=== PATIENT | male | born 1950 | race Caucasian/White ===

== ENCOUNTER 2016-07-11 14:53 | Emergency (ER) | payer MEDICARE ==
[2016-07-11] MEDS ORDERED: KETOROLAC 30 MG/ML 1 ML VIAL IVP STA (15:05)
[2016-07-11] MEDS ORDERED: IPRATROPIUM-ALBUTEROL 3 ML NEB INHALATION STA (15:06)
--- NOTE | 2016-07-11 15:09 | ED ---
Chest Pain HPI - General Stated Complaint: Chest Discomfort Time Seen by Provider: 07/11/16 15:00 Source: patient, EMS, RN notes reviewed Mode of arrival: EMS - History of Present Illness Initial Comments: This is a 65-year-old male with a history of COPD who has smoked for 30 years and continues to smoke a pack a day who states he's had chest pain for about a week sharp and achy nature left sternal increase with movements and deep breathing he's had a slight cough no major phlegm production no fevers chills or sweats no peripheral edema no other complaints of any other problems today he denies any injury any heavy lifting. MD Complaint: chest pain, other - Related Data Home Medications Medication Instructions Recorded Confirmed Gabapentin 300 mg PO BID 04/06/15 07/11/16 Omeprazole 40 mg PO HS 04/06/15 07/11/16 Atorvastatin [Lipitor] 10 mg PO HS 07/31/15 07/11/16 Escitalopram [Lexapro] 5 mg PO DAILY 07/11/16 07/11/16 Previous Rx's Medication Instructions Recorded Ibuprofen [Motrin] 800 mg PO Q6HR PRN #20 tab 07/11/16 Allergies Allergy/AdvReac Type Severity Reaction Status Date / Time No Known Allergies Allergy Verified 07/11/16 15:11 Review of Systems ROS Statement: Those systems with pertinent positive or pertinent negative responses have been documented in the HPI. ROS Other: All systems not noted in ROS Statement are negative. EKG Findings - EKG Results: EKG: interpreted by ERMD, sinus rhythm (EKG shows normal sinus rhythm of 65 VT interval of 150 to QRS of 84 daily since QTC of 406/422 this is a normal- appearing EKG no acute ST-T wave changes.) Past Medical History Past Medical History: Cancer, Chest Pain / Angina, GERD/Reflux, Hyperlipidemia Additional Past Medical History / Comment(s): melanoma RT EAR, varicose veins, hiatal hernia, skin cancer on congregational area, History of Any Multi-Drug Resistant Organisms: None Reported Past Surgical History: Cholecystectomy, Hernia Repair, Orthopedic Surgery, Tonsillectomy Additional Past Surgical History / Comment(s): left shoulder surgery, Past Anesthesia/Blood Transfusion Reactions: No Reported Reaction Past Psychological History: Depression Additional Psychological History / Comment(s): hx night terrors Smoking Status: Current every day smoker Past Alcohol Use History: Occasional Additional Past Alcohol Use History / Comment(s): smoker for 50 yrs-,1/2 PPD Past Drug Use History: None Reported - Past Family History Father Family Medical History: Cancer Additional Family Medical History / Comment(s): colorectal cancer General Exam - General Exam Comments Initial Comments: This is a well-developed well-nourished awake alert oriented times female he does appear anxious General appearance: alert, anxious Head exam: Present: atraumatic, normocephalic, normal inspection Eye exam: Present: normal appearance, PERRL, EOMI. Absent: scleral icterus, conjunctival injection, periorbital swelling ENT exam: Present: normal exam, mucous membranes moist Neck exam: Present: normal inspection. Absent: tenderness, meningismus, lymphadenopathy Respiratory exam: Present: normal lung sounds bilaterally, chest wall tenderness (Reproducible tenderness palpation along the left costal chondral and chondrosternal margin). Absent: respiratory distress, wheezes, rales, rhonchi, stridor Cardiovascular Exam: Present: regular rate, normal rhythm, normal heart sounds. Absent: systolic murmur, diastolic murmur, rubs, gallop, clicks GI/Abdominal exam: Present: soft, normal bowel sounds. Absent: distended, tenderness, guarding, rebound, rigid Extremities exam: Present: normal inspection, full ROM, normal capillary refill. Absent: tenderness, pedal edema, joint swelling, calf tenderness Back exam: Present: normal inspection Neurological exam: Present: alert, oriented X3, CN II-XII intact Psychiatric exam: Present: normal affect, normal mood Skin exam: Present: warm, dry, intact, normal color. Absent: rash Course Vital Signs 07/11/16 07/11/16 07/11/16 15:00 15:05 15:23 Temperature 97.0 F L Pulse Rate 83 69 Pulse Rate [ 80 Assisted Living Assistant ] Respiratory 22 20 Rate Blood Pressure 156/88 O2 Sat by Pulse 97 Oximetry 07/11/16 07/11/16 15:36 16:33 Temperature 98.0 F Pulse Rate 63 113 H Pulse Rate [ Assisted Living Assistant ] Respiratory 18 Rate Blood Pressure 125/83 O2 Sat by Pulse 96 Oximetry Chest Pain MDM - MDM I did review the imaging and reports of which were. Be within normal limits. I did discuss the findings with the patient. He'll be discharged the presentation is consistent with chest wall pain and costochondritis he will be placed on appropriate anti-inflammatory medication follow up with his doctor and return when necessary Disposition Clinical Impression: Costalchondritis, Chest wall syndrome Disposition: HOME SELF-CARE Condition: Good Instructions: Costochondritis (ED) Prescriptions: Ibuprofen [Motrin] 800 mg PO Q6HR PRN #20 tab PRN Reason: Pain Referrals: Rebekah Maldonado DO [Primary Care Provider] - 1-2 days
[2016-07-11 15:35] LABS: Basophils # (A) 0.1 k/uL (0-0.2); Basophils % (A) 1 %; CH 32.2; CHCM 35.5; Eosinophils # (A) 0.2 k/uL (0-0.7); Eosinophils % (A) 2 %; HDW 2.57; HGB 16.3 gm/dL (13.0-17.5); Luc # (Auto) 0.11; Luc % (Auto) 1; Lymphocytes # (A) 2.9 k/uL (1.0-4.8); Lymphocytes % (A) 32 %; MCH 32.3 pg (25.0-35.0); MCHC 35.4 g/dL (31.0-37.0); MCV 91.3 fL (80.0-100.0); Mean Platelet Volume 8.4; Monocytes # (A) 0.4 k/uL (0-1.0); Monocytes % (A) 5 %; Neutrophils # (A) 5.6 k/uL (1.3-7.7); Neutrophils % (A) 60 %; RBC 5.04 m/uL (4.30-5.90); RDW 12.9 % (11.5-15.5); WBC 9.2 k/uL (3.8-10.6)
[2016-07-11 15:44] LABS: ALT 36 U/L (21-72); AST 23 U/L (17-59); Alkaline Phosphatase 64 U/L (38-126); Anion Gap 11 mmol/L; Blood Urea Nitrogen 14 mg/dL (9-20); Carbon Dioxide 22 mmol/L (22-30); Chloride 109 mmol/L (98-107); Glucose 106 mg/dL (74-99); Non-African American GFR(MDRD) >60 (>60 ml/min/1.73 sqM); Potassium 3.7 mmol/L (3.5-5.1); Sodium 142 mmol/L (137-145); Total Protein 6.9 g/dL (6.3-8.2)
--- NOTE | 2016-07-11 15:44 | XR ---
EXAMINATION TYPE: XR chest 2V DATE OF EXAM: 07/11/2016 3:41 PM COMPARISON: NONE INDICATION: Chest pain TECHNIQUE: Frontal and lateral views of the chest are obtained. FINDINGS: The heart size is normal. The pulmonary vasculature is normal. The lungs are clear. IMPRESSION: 1. No acute pulmonary process.
[2016-07-11 15:48] LABS: INR 1.1 (<1.1); Partial Thromboplastin Time 25.9 sec (22.0-30.0); Prothrombin Time 10.8 sec (9.0-12.0)
[2016-07-11 15:49] LABS: Creatine Kinase 81 U/L (55-170)
[2016-07-11 16:01] LABS: Creatine Kinase MB 0.5 ng/mL (0.0-2.4); Troponin I <0.012 ng/mL (0.000-0.034)
[2016-07-11 16:34] VITALS: BP 125/83; PULSE 113; RESP 18
[2016-07-11 16:41] VITALS: TEMP 98
== END 2016-07-11 16:45 | disposition home or self-care (01) ==
LOC: EC 14:53
DX: M94.0 Chondrocostal junction syndrome [Tietze] (principal); K21.9 Gastro-esophageal reflux disease without esophagitis; E78.5 Hyperlipidemia, unspecified; F32.9 Major depressive disorder, single episode, unspecified; F17.200 Nicotine dependence, unspecified, uncomplicated; Z79.899 Other long term (current) drug therapy; Z86.79 Personal history of other diseases of the circulatory system; Z85.828 Personal history of other malignant neoplasm of skin
CPT/HCPCS: 99285; 96374; 36415; 94640; 93005; 85379; 83880; 80053; 82550; 82553; 83735; 84484; 85025; 85610; 85730; 71020; J1885

== ENCOUNTER 2018-01-08 05:54 | Emergency (ER) | payer MEDICARE ==
[2018-01-08 06:06] VITALS: RESP 16
--- NOTE | 2018-01-08 06:36 | ED ---
Abdominal Pain HPI - General Chief Complaint: Abdominal Pain Stated Complaint: male Time Seen by Provider: 01/08/18 06:17 Source: patient Mode of arrival: ambulatory Limitations: no limitations - History of Present Illness Initial Comments: This patient is a 67-year-old man who presents to be evaluated for abdominal pain that he believes is related to constipation. Patient states that for the past 6 weeks he has had these symptoms. He indicates abdominal pains that seem to migrate around his abdomen but are generally worse in the low abdomen, and he also feels pain toward the perianal area. The patient states that his bowel movements have been decreasing. He relates this to the fact that he decrease the amount of bicycling that he was doing approximately 4-6 weeks ago. MD Complaint: abdominal pain Onset/Timin -: week(s) Location: diffuse Radiation: none Severity: moderate Quality: cramping, fullness Consistency: intermittent Improves With: bowel movement Worsens With: nothing Associated Symptoms: denies other symptoms - Related Data Home Medications Medication Instructions Recorded Confirmed Gabapentin 600 mg PO HS 04/06/15 10/27/17 Omeprazole 40 mg PO HS 04/06/15 10/27/17 Atorvastatin [Lipitor] 10 mg PO HS 07/31/15 10/27/17 Escitalopram [Lexapro] 5 mg PO HS 07/11/16 10/27/17 Previous Rx's Medication Instructions Recorded Ibuprofen [Motrin] 800 mg PO Q6HR PRN #20 tab 07/11/16 Lactulose 10 gm PO DAILY #500 ml 01/08/18 Allergies Allergy/AdvReac Type Severity Reaction Status Date / Time No Known Allergies Allergy Verified 10/27/17 07:29 Review of Systems ROS Statement: Those systems with pertinent positive or pertinent negative responses have been documented in the HPI. ROS Other: All systems not noted in ROS Statement are negative. Constitutional: Denies: fever, chills Respiratory: Denies: cough, dyspnea Cardiovascular: Denies: chest pain, palpitations Gastrointestinal: Reports: as per HPI, abdominal pain, constipation. Denies: nausea, vomiting, diarrhea, melena, hematochezia Genitourinary: Denies: dysuria, hematuria, testicular pain, testicular mass Musculoskeletal: Denies: back pain Skin: Denies: rash Neurological: Denies: headache Past Medical History Past Medical History: Cancer, Chest Pain / Angina, GERD/Reflux, Hyperlipidemia Additional Past Medical History / Comment(s): melanoma RT EAR, varicose veins, hiatal hernia, skin cancer on judaism area, colon polyps History of Any Multi-Drug Resistant Organisms: None Reported Past Surgical History: Cholecystectomy, Hernia Repair, Orthopedic Surgery, Tonsillectomy Additional Past Surgical History / Comment(s): left shoulder surgery, Past Anesthesia/Blood Transfusion Reactions: No Reported Reaction Past Psychological History: Depression Smoking Status: Current every day smoker Past Alcohol Use History: Occasional Past Drug Use History: None Reported - Past Family History Father Family Medical History: Cancer Additional Family Medical History / Comment(s): colorectal cancer General Exam Limitations: no limitations General appearance: alert, in no apparent distress Head exam: Present: atraumatic, normocephalic Eye exam: Present: normal appearance. Absent: scleral icterus, conjunctival injection ENT exam: Present: normal oropharynx Respiratory exam: Present: normal lung sounds bilaterally. Absent: respiratory distress, wheezes, rales, rhonchi, stridor Cardiovascular Exam: Present: regular rate, normal rhythm, normal heart sounds. Absent: systolic murmur, diastolic murmur, rubs, gallop GI/Abdominal exam: Present: soft. Absent: distended, tenderness, guarding, rebound, rigid, mass Extremities exam: Present: normal inspection, normal capillary refill. Absent: pedal edema Back exam: Present: normal inspection. Absent: CVA tenderness (R), CVA tenderness (L) Neurological exam: Present: alert Skin exam: Present: warm, dry, intact, normal color. Absent: rash Course Vital Signs 01/08/18 01/08/18 06:02 06:40 Temperature 97.5 F L 97.8 F Pulse Rate 57 L 51 L Respiratory 16 16 Rate Blood Pressure 129/82 170/94 O2 Sat by Pulse 98 95 Oximetry Medical Decision Making - Lab Data Result diagrams: 01/08/18 06:28 01/08/18 06:28 Lab Results 01/08/18 01/08/18 01/08/18 Range/Units 06:28 06:28 06:59 WBC 9.2 (3.8-10.6) k/uL RBC 5.35 (4.30-5.90) m/uL Hgb 16.5 (13.0-17.5) gm/dL Hct 51.3 (39.0-53.0) % MCV 95.9 (80.0-100.0) fL MCH 30.9 (25.0-35.0) pg MCHC 32.2 (31.0-37.0) g/dL RDW 13.7 (11.5-15.5) % Plt Count 211 (150-450) k/uL Neutrophils % 56 % Lymphocytes % 33 % Monocytes % 4 % Eosinophils % 4 % Basophils % 1 % Neutrophils # 5.1 (1.3-7.7) k/uL Lymphocytes # 3.1 (1.0-4.8) k/uL Monocytes # 0.4 (0-1.0) k/uL Eosinophils # 0.4 (0-0.7) k/uL Basophils # 0.1 (0-0.2) k/uL Sodium 142 (137-145) mmol/L Potassium 4.2 (3.5-5.1) mmol/L Chloride 109 H (98-107) mmol/L Carbon Dioxide 26 (22-30) mmol/L Anion Gap 7 mmol/L BUN 12 (9-20) mg/dL Creatinine 0.84 (0.66-1.25) mg/dL Est GFR (CKD-EPI)AfAm >90 (>60 ml/min/1.73 sqM) Est GFR (CKD-EPI)NonAf >90 (>60 ml/min/1.73 sqM) Glucose 88 (74-99) mg/dL Calcium 10.3 H (8.4-10.2) mg/dL Total Bilirubin 0.7 (0.2-1.3) mg/dL AST 23 (17-59) U/L ALT 35 (21-72) U/L Alkaline Phosphatase 63 (38-126) U/L Total Protein 7.0 (6.3-8.2) g/dL Albumin 4.4 (3.5-5.0) g/dL Amylase 44 (30-110) U/L Lipase 61 (23-300) U/L Stool Occult Blood Negative (Negative) Disposition Clinical Impression: Constipation Disposition: HOME SELF-CARE Condition: Good Instructions: Constipation (ED) Prescriptions: Lactulose 10 gm PO DAILY #500 ml Is patient prescribed a controlled substance at d/c from ED?: No Referrals: Rebekah Maldonado DO [Primary Care Provider] - 1-2 days Darin Spain MD [STAFF PHYSICIAN] - 1-2 days
[2018-01-08 06:44] LABS: Basophils # (A) 0.1 k/uL (0-0.2); Basophils % (A) 1 %; Eosinophils # (A) 0.4 k/uL (0-0.7); Eosinophils % (A) 4 %; HCT 51.3 % (39.0-53.0); HGB 16.5 gm/dL (13.0-17.5); Lymphocytes # (A) 3.1 k/uL (1.0-4.8); Lymphocytes % (A) 33 %; MCH 30.9 pg (25.0-35.0); MCHC 32.2 g/dL (31.0-37.0); MCV 95.9 fL (80.0-100.0); Mean Platelet Volume 7.8; Monocytes # (A) 0.4 k/uL (0-1.0); Monocytes % (A) 4 %; Neutrophils # (A) 5.1 k/uL (1.3-7.7); Neutrophils % (A) 56 %; Platelet Count 211 k/uL (150-450); RBC 5.35 m/uL (4.30-5.90); RDW 13.7 % (11.5-15.5); WBC 9.2 k/uL (3.8-10.6)
[2018-01-08 07:01] LABS: ALT 35 U/L (21-72); AST 23 U/L (17-59); Albumin 4.4 g/dL (3.5-5.0); Alkaline Phosphatase 63 U/L (38-126); Amylase 44 U/L (30-110); Anion Gap 7 mmol/L; Blood Urea Nitrogen 12 mg/dL (9-20); Calcium 10.3 mg/dL (8.4-10.2); Carbon Dioxide 26 mmol/L (22-30); Chloride 109 mmol/L (98-107); Glucose 88 mg/dL (74-99); Lipase 61 U/L (23-300); Potassium 4.2 mmol/L (3.5-5.1); Sodium 142 mmol/L (137-145); Total Bilirubin 0.7 mg/dL (0.2-1.3)
--- NOTE | 2018-01-08 07:13 | XR ---
EXAMINATION TYPE: XR KUB DATE OF EXAM: 01/08/2018 COMPARISON: NONE HISTORY: Pain TECHNIQUE: Single supine KUB image of the abdomen is obtained FINDINGS: Small bowel demonstrates no evidence for dilatation or air fluid levels. Gas and fecal material is seen in non-distended colon. No convincing evidence for pneumoperitoneum. No unusual calcifications. The lung bases are clear. The osseous structures are intact. IMPRESSION: 1. Overall nonobstructive bowel gas pattern.
[2018-01-08] MEDS ORDERED: MAGNESIUM CITRATE 296 ML BOTTLE PO ONE (07:34)
[2018-01-08 07:52] LABS: Appearance,Urine Clear (Clear); Bilirubin,Urine Negative (Negative); Blood,Urine Negative (Negative); Color,Urine Yellow; Glucose,Urine (UA) Negative (Negative); Ketones,Urine Negative (Negative); Leukocyte Esterase,Urine Negative (Negative); Nitrite,Urine Negative (Negative); Protein,Urine Negative (Negative); Specific Gravity,Urine 1.017 (1.001-1.035); Urobilinogen,Urine <2.0 mg/dL (<2.0)
[2018-01-08 08:07] VITALS: BP 158/94; PULSE 68; TEMP 97.9
== END 2018-01-08 08:06 | disposition home or self-care (01) ==
LOC: EC 05:54
DX: K59.00 Constipation, unspecified (principal); R10.84 Generalized abdominal pain; K21.9 Gastro-esophageal reflux disease without esophagitis; E78.5 Hyperlipidemia, unspecified; F32.9 Major depressive disorder, single episode, unspecified; Z85.828 Personal history of other malignant neoplasm of skin; F17.200 Nicotine dependence, unspecified, uncomplicated; Z79.899 Other long term (current) drug therapy; Z90.49 Acquired absence of other specified parts of digestive tract
CPT/HCPCS: 36415; 74018; 80053; 81003; 82150; 82272; 83690; 85025; 99284

== ENCOUNTER 2018-04-21 15:14 | Emergency (ER) | payer MEDICARE ==
[2018-04-21 15:26] VITALS: RESP 18
[2018-04-21] MEDS ORDERED: MECLIZINE 12.5 MG TAB PO STA (16:03)
[2018-04-21] MEDS ORDERED: SODIUM CHLORIDE 0.9% 1,000 ML IV STA (16:03)
--- NOTE | 2018-04-21 16:58 | XR ---
EXAMINATION: XR chest 2V DATE AND TIME: 04/21/2018 4:42 PM CLINICAL INDICATION: PHH; dizziness TECHNIQUE: Departmental protocol COMPARISON: 07/11/2016 FINDINGS: The lungs are clear. The pleural spaces are negative. The cardiac silhouette is not enlarged. The skeletal structures and soft tissues are negative for acute findings. IMPRESSION: NO ACUTE PROCESS.
[2018-04-21 17:05] LABS: Appearance,Urine Clear (Clear); Basophils # (A) 0.1 k/uL (0-0.2); Basophils % (A) 1 %; Bilirubin,Urine Negative (Negative); Blood,Urine Negative (Negative); Color,Urine Yellow; Eosinophils # (A) 0.4 k/uL (0-0.7); Eosinophils % (A) 4 %; Glucose,Urine (UA) Negative (Negative); HCT 50.1 % (39.0-53.0); HGB 15.9 gm/dL (13.0-17.5); Ketones,Urine Negative (Negative); Leukocyte Esterase,Urine Negative (Negative); Lymphocytes # (A) 4.2 k/uL (1.0-4.8); Lymphocytes % (A) 42 %; MCH 30.2 pg (25.0-35.0); MCHC 31.7 g/dL (31.0-37.0); MCV 95.4 fL (80.0-100.0); Mean Platelet Volume 8.2; Monocytes # (A) 0.5 k/uL (0-1.0); Monocytes % (A) 5 %; Neutrophils # (A) 4.6 k/uL (1.3-7.7); Neutrophils % (A) 47 %; Nitrite,Urine Negative (Negative); PH, Urine 6.5 (5.0-8.0); Platelet Count 195 k/uL (150-450); Protein,Urine Negative (Negative); RBC 5.26 m/uL (4.30-5.90); RDW 13.5 % (11.5-15.5); Specific Gravity,Urine 1.017 (1.001-1.035); Urobilinogen,Urine <2.0 mg/dL (<2.0); WBC 9.9 k/uL (3.8-10.6)
[2018-04-21 17:16] LABS: INR 0.9 (<1.2); Prothrombin Time 10.2 sec (9.0-12.0)
[2018-04-21 17:20] LABS: ALT 37 U/L (21-72); AST 19 U/L (17-59); Albumin 4.2 g/dL (3.5-5.0); Alkaline Phosphatase 70 U/L (38-126); Anion Gap 6 mmol/L; Blood Urea Nitrogen 11 mg/dL (9-20); Calcium 9.7 mg/dL (8.4-10.2); Carbon Dioxide 27 mmol/L (22-30); Chloride 110 mmol/L (98-107); Glucose 76 mg/dL (74-99); Sodium 143 mmol/L (137-145); Total Bilirubin 0.4 mg/dL (0.2-1.3); Total Protein 6.5 g/dL (6.3-8.2)
--- NOTE | 2018-04-21 17:26 | ED ---
Dizziness HPI - General Chief Complaint: Dizziness Stated Complaint: Dizzy, unbalanced Time Seen by Provider: 04/21/18 15:35 Source: patient, RN notes reviewed, old records reviewed Mode of arrival: ambulatory Limitations: no limitations - History of Present Illness Initial Comments: Patient's this 7-year-old male presents today with complaints of dizziness. Patient states that he has had symptoms of dizziness intermittently for the past few months. He reports feeling the room is spinning. He does complain of some sinus condition. He's been evaluated multiple times in past with dizziness. Denies any chest patient's breath nausea or vomiting. - Related Data Home Medications Medication Instructions Recorded Confirmed Gabapentin 600 mg PO HS 04/06/15 04/21/18 Omeprazole 40 mg PO HS 04/06/15 04/21/18 Atorvastatin [Lipitor] 10 mg PO HS 07/31/15 04/21/18 ALPRAZolam [Xanax] 0.5 mg PO DAILY PRN 04/21/18 04/21/18 Previous Rx's Medication Instructions Recorded Meclizine [Antivert] 25 mg PO TID #20 tab 04/21/18 Allergies Allergy/AdvReac Type Severity Reaction Status Date / Time No Known Allergies Allergy Verified 04/21/18 17:17 Review of Systems ROS Statement: Those systems with pertinent positive or pertinent negative responses have been documented in the HPI. ROS Other: All systems not noted in ROS Statement are negative. Past Medical History Past Medical History: Cancer, Chest Pain / Angina, GERD/Reflux, Hyperlipidemia Additional Past Medical History / Comment(s): melanoma RT EAR, varicose veins, hiatal hernia, skin cancer on pentecostal area, colon polyps History of Any Multi-Drug Resistant Organisms: None Reported Past Surgical History: Cholecystectomy, Hernia Repair, Orthopedic Surgery, Tonsillectomy Additional Past Surgical History / Comment(s): left shoulder surgery, Past Anesthesia/Blood Transfusion Reactions: No Reported Reaction Past Psychological History: Depression Smoking Status: Current every day smoker Past Alcohol Use History: Occasional Past Drug Use History: None Reported - Past Family History Father Family Medical History: Cancer Additional Family Medical History / Comment(s): colorectal cancer General Exam - General Exam Comments Initial Comments: 67-year-old male. Alert and oriented 3. No significant distress General: Well appearing, well nourished, in no distress. Oriented x 3, normal mood and affect . Ambulating without difficulty. Skin: Good turgor, no rash, unusual bruising or prominent lesions Hair: Normal texture and distribution. HEENT: Head: Normocephalic, atraumatic, no visible or palpable masses, depressions, or scaring. Eyes: Visual acuity intact, conjunctiva clear, sclera non-icteric, EOM intact, PERRL. Ears: EACs clear, TMs translucent & cone of light visualized. hearing intact. Nose: No external lesions, mucosa non-inflamed, septum and turbinates normal Mouth: Mucous membranes moist, no mucosal lesions. Teeth/Gums: No obvious caries or periodontal disease. No gingival inflammation or significant resorption. Pharynx: Mucosa non-inflamed, no tonsillar hypertrophy or exudate Neck: Supple, without lesions, bruits, or adenopathy, thyroid non-enlarged and non-tender Heart: No cardiomegaly or thrills; regular rate and rhythm, no murmur or gallop Lungs: Clear to auscultation and percussion Abdomen: Bowel sounds normal, no tenderness, organomegaly, masses, or hernia Back: Spine normal without deformity or tenderness, no CVA tenderness Rectal: Normal sphincter tone, no hemorrhoids or masses palpable Extremities: No amputations or deformities, cyanosis, edema or varicosities, peripheral pulses intact Musculoskeletal: Normal gait and station. No misalignment, asymmetry, crepitation, defects, tenderness, masses, effusions, decreased range of motion, instability, atrophy or abnormal strength or tone in the head, neck, spine, ribs , pelvis or extremities. Neurologic: CN 2-12 normal. Sensation to pain, touch, and proprioception normal. DTRs normal in upper and lower extremities. No pathologic reflexes. Psychiatric: Oriented X3, intact recent and remote memory, judgment and insight , normal mood and affect. Limitations: no limitations General appearance: alert, in no apparent distress Head exam: Present: atraumatic, normocephalic, normal inspection Course Vital Signs 04/21/18 04/21/18 04/21/18 15:24 17:00 18:00 Temperature 98.4 F Pulse Rate 57 L 46 L 45 L Respiratory 18 18 18 Rate Blood Pressure 166/89 154/118 191/100 O2 Sat by Pulse 99 97 96 Oximetry 04/21/18 18:51 Temperature 97.4 F L Pulse Rate 59 L Respiratory 18 Rate Blood Pressure 157/100 O2 Sat by Pulse 98 Oximetry EKG Findings - EKG Comments: EKG Findings:: EKG shows sinus precordial sinus arrhythmia, left axis deviation. Abnormal EKG. Ventricular rate 57 bpm. Verbal is 154 ms. QRS duration 86 most seconds. QT QTc is 416/404 ms. Medical Decision Making - Medical Decision Making 67-year-old male present in today with complaints of dizziness. He feels like the room is spinning. He's been having this intermittent room spinning for the past few months. Patient is given IV fluids and lab work was obtained. EKG was negative for any acute changes. Troponins negative. Chest x-rays negative for any acute response. has reported feeling better after dose of meclizine. I discussed that Patient symptoms like this in the vertigo. He did have some lateral left-sided nystagmus. Patient denies any headache or pains. Discusses sent discharge and Patient with prescription for meclizine. Discussed close follow-up with PCP. All questions were answered. Patient was anxious for discharge. - Lab Data Result diagrams: 04/21/18 16:20 04/21/18 16:20 Lab Results 04/21/18 04/21/18 04/21/18 Range/Units 16:20 16:20 16:20 WBC 9.9 (3.8-10.6) k/uL RBC 5.26 (4.30-5.90) m/uL Hgb 15.9 (13.0-17.5) gm/dL Hct 50.1 (39.0-53.0) % MCV 95.4 (80.0-100.0) fL MCH 30.2 (25.0-35.0) pg MCHC 31.7 (31.0-37.0) g/dL RDW 13.5 (11.5-15.5) % Plt Count 195 (150-450) k/uL Neutrophils % 47 % Lymphocytes % 42 % Monocytes % 5 % Eosinophils % 4 % Basophils % 1 % Neutrophils # 4.6 (1.3-7.7) k/uL Lymphocytes # 4.2 (1.0-4.8) k/uL Monocytes # 0.5 (0-1.0) k/uL Eosinophils # 0.4 (0-0.7) k/uL Basophils # 0.1 (0-0.2) k/uL PT 10.2 (9.0-12.0) sec INR 0.9 (<1.2) Sodium 143 (137-145) mmol/L Potassium 4.0 (3.5-5.1) mmol/L Chloride 110 H (98-107) mmol/L Carbon Dioxide 27 (22-30) mmol/L Anion Gap 6 mmol/L BUN 11 (9-20) mg/dL Creatinine 0.89 (0.66-1.25) mg/dL Est GFR (CKD-EPI)AfAm >90 (>60 ml/min/1.73 sqM) Est GFR (CKD-EPI)NonAf >90 (>60 ml/min/1.73 sqM) Glucose 76 (74-99) mg/dL Calcium 9.7 (8.4-10.2) mg/dL Total Bilirubin 0.4 (0.2-1.3) mg/dL AST 19 (17-59) U/L ALT 37 (21-72) U/L Alkaline Phosphatase 70 (38-126) U/L Troponin I (0.000-0.034) ng/mL Total Protein 6.5 (6.3-8.2) g/dL Albumin 4.2 (3.5-5.0) g/dL Urine Color Urine Appearance (Clear) Urine pH (5.0-8.0) Ur Specific Harper (1.001-1.035) Urine Protein (Negative) Urine Glucose (UA) (Negative) Urine Ketones (Negative) Urine Blood (Negative) Urine Nitrite (Negative) Urine Bilirubin (Negative) Urine Urobilinogen (<2.0) mg/dL Ur Leukocyte Esterase (Negative) 04/21/18 04/21/18 Range/Units 16:20 16:20 WBC (3.8-10.6) k/uL RBC (4.30-5.90) m/uL Hgb (13.0-17.5) gm/dL Hct (39.0-53.0) % MCV (80.0-100.0) fL MCH (25.0-35.0) pg MCHC (31.0-37.0) g/dL RDW (11.5-15.5) % Plt Count (150-450) k/uL Neutrophils % % Lymphocytes % % Monocytes % % Eosinophils % % Basophils % % Neutrophils # (1.3-7.7) k/uL Lymphocytes # (1.0-4.8) k/uL Monocytes # (0-1.0) k/uL Eosinophils # (0-0.7) k/uL Basophils # (0-0.2) k/uL PT (9.0-12.0) sec INR (<1.2) Sodium (137-145) mmol/L Potassium (3.5-5.1) mmol/L Chloride (98-107) mmol/L Carbon Dioxide (22-30) mmol/L Anion Gap mmol/L BUN (9-20) mg/dL Creatinine (0.66-1.25) mg/dL Est GFR (CKD-EPI)AfAm (>60 ml/min/1.73 sqM) Est GFR (CKD-EPI)NonAf (>60 ml/min/1.73 sqM) Glucose (74-99) mg/dL Calcium (8.4-10.2) mg/dL Total Bilirubin (0.2-1.3) mg/dL AST (17-59) U/L ALT (21-72) U/L Alkaline Phosphatase (38-126) U/L Troponin I <0.012 (0.000-0.034) ng/mL Total Protein (6.3-8.2) g/dL Albumin (3.5-5.0) g/dL Urine Color Yellow Urine Appearance Clear (Clear) Urine pH 6.5 (5.0-8.0) Ur Specific Harper 1.017 (1.001-1.035) Urine Protein Negative (Negative) Urine Glucose (UA) Negative (Negative) Urine Ketones Negative (Negative) Urine Blood Negative (Negative) Urine Nitrite Negative (Negative) Urine Bilirubin Negative (Negative) Urine Urobilinogen <2.0 (<2.0) mg/dL Ur Leukocyte Esterase Negative (Negative) - Radiology Data Radiology results: report reviewed Chest x-rays negative for any acute process. Disposition Clinical Impression: Vertigo Disposition: HOME SELF-CARE Condition: Good Instructions (If sedation given, give patient instructions): Dizziness (ED) Additional Instructions: Patient is to rest, have a low-salt diet. Follow-up with PCP. Return to the emergency department if any alarming signs or symptoms occur. Prescriptions: Meclizine [Antivert] 25 mg PO TID #20 tab Is patient prescribed a controlled substance at d/c from ED?: No Referrals: Rebekah Maldonado DO [Primary Care Provider] - 1-2 days Time of Disposition: 18:36
[2018-04-21 18:53] VITALS: BP 157/100; PULSE 59; TEMP 97.4
== END 2018-04-21 18:50 | disposition home or self-care (01) ==
LOC: EC 15:14
DX: R42 Dizziness and giddiness (principal); K21.9 Gastro-esophageal reflux disease without esophagitis; E78.5 Hyperlipidemia, unspecified; Z85.820 Personal history of malignant melanoma of skin; F17.200 Nicotine dependence, unspecified, uncomplicated; Z79.899 Other long term (current) drug therapy
CPT/HCPCS: 36415; 71046; 80053; 81003; 84484; 85025; 85610; 93005; 96360; 99284

== ENCOUNTER 2018-04-22 11:38 | Observation (INO) | payer MEDICARE ==
[2018-04-22] MEDS ORDERED: NITROGLYCERIN OINT 1 INCH/GM PACKET TOPICAL STA (11:55)
[2018-04-22] MEDS ORDERED: ASPIRIN 81 MG PO STA (11:55)
--- NOTE | 2018-04-22 11:58 | ED ---
General Adult HPI - General Chief complaint: Chest Pain Stated complaint: Chest discomfort Time Seen by Provider: 04/22/18 11:43 Source: patient, RN notes reviewed Mode of arrival: EMS Limitations: no limitations - History of Present Illness Initial comments: Patient is a pleasant 67-year-old male presenting to the emergency Department with chest discomfort. Onset of symptoms was this morning prior to arrival following taking a half mile walk. Discomfort felt like pressure or discomfort was moderate rated 5 or 6/10. Discomfort is now near resolved. There was some mild associated dyspnea and minimal nausea. Dose of both resolved. No associated diaphoresis. No history of similar symptoms previously. Patient has had some generalized weakness and fatigue over the past couple months intermittently. - Related Data Home Medications Medication Instructions Recorded Confirmed Gabapentin 600 mg PO HS 04/06/15 04/22/18 Omeprazole 40 mg PO HS 04/06/15 04/22/18 Atorvastatin [Lipitor] 10 mg PO HS 07/31/15 04/22/18 ALPRAZolam [Xanax] 0.5 mg PO DAILY PRN 04/21/18 04/22/18 Previous Rx's Medication Instructions Recorded Meclizine [Antivert] 25 mg PO TID #20 tab 04/21/18 Allergies Allergy/AdvReac Type Severity Reaction Status Date / Time No Known Allergies Allergy Verified 04/22/18 12:04 Review of Systems ROS Statement: Those systems with pertinent positive or pertinent negative responses have been documented in the HPI. ROS Other: All systems not noted in ROS Statement are negative. Constitutional: Denies: fever Eyes: Denies: eye pain ENT: Denies: ear pain Respiratory: Reports: as per HPI. Denies: cough Cardiovascular: Reports: chest pain Endocrine: Reports: fatigue Gastrointestinal: Denies: abdominal pain Genitourinary: Denies: dysuria Musculoskeletal: Denies: back pain Skin: Denies: rash Neurological: Denies: weakness Past Medical History Past Medical History: Cancer, Chest Pain / Angina, GERD/Reflux, Hyperlipidemia Additional Past Medical History / Comment(s): melanoma RT EAR, varicose veins, hiatal hernia, skin cancer on quaker area, colon polyps History of Any Multi-Drug Resistant Organisms: None Reported Past Surgical History: Cholecystectomy, Hernia Repair, Orthopedic Surgery, Tonsillectomy Additional Past Surgical History / Comment(s): left shoulder surgery, Past Anesthesia/Blood Transfusion Reactions: No Reported Reaction Past Psychological History: Anxiety, Depression Smoking Status: Current every day smoker Past Alcohol Use History: Occasional Past Drug Use History: None Reported - Past Family History Father Family Medical History: Cancer Additional Family Medical History / Comment(s): colorectal cancer General Exam Limitations: no limitations General appearance: alert, in no apparent distress Head exam: Present: atraumatic Eye exam: Present: normal appearance, PERRL ENT exam: Present: normal oropharynx Neck exam: Present: normal inspection Respiratory exam: Present: normal lung sounds bilaterally Cardiovascular Exam: Present: regular rate, normal rhythm Expanded Peripheral pulses: 2+: Radial (R), Radial (L), Posterior Tibialis (R), Posterior Tibialis (L) GI/Abdominal exam: Present: soft. Absent: tenderness Extremities exam: Present: normal inspection. Absent: pedal edema, calf tenderness Neurological exam: Present: alert, CN II-XII intact. Absent: motor sensory deficit Psychiatric exam: Present: normal affect, normal mood Skin exam: Present: normal color Course Vital Signs 04/22/18 04/22/18 04/22/18 11:41 11:43 12:00 Temperature 97.7 F Pulse Rate 93 91 48 L Respiratory 18 29 H Rate Blood Pressure 105/87 105/87 95/74 O2 Sat by Pulse 96 96 99 Oximetry 04/22/18 04/22/18 04/22/18 12:30 13:00 13:30 Temperature Pulse Rate 56 L 46 L 44 L Respiratory Rate Blood Pressure 108/79 109/73 134/78 O2 Sat by Pulse 97 97 96 Oximetry 04/22/18 14:00 Temperature Pulse Rate 43 L Respiratory Rate Blood Pressure 115/81 O2 Sat by Pulse 98 Oximetry EKG Findings - EKG Comments: EKG Findings:: Normal sinus rhythm 88. CA 140. QRS 84. QT 376. QTc 454. Left axis. Normal QRS. No acute ST change. Medical Decision Making - Medical Decision Making Patient reevaluated and resting comfortably in bed. Patient updated on results and plan. Case was discussed in detail with Dr. Croft, covering for Dr. Collado , who will admit. - Lab Data Result diagrams: 04/22/18 11:45 04/22/18 11:45 Lab Results 04/22/18 04/22/18 04/22/18 Range/Units 11:45 11:45 11:45 WBC 9.8 (3.8-10.6) k/uL RBC 5.09 (4.30-5.90) m/uL Hgb 16.2 (13.0-17.5) gm/dL Hct 48.5 (39.0-53.0) % MCV 95.2 (80.0-100.0) fL MCH 31.9 (25.0-35.0) pg MCHC 33.5 (31.0-37.0) g/dL RDW 13.5 (11.5-15.5) % Plt Count 177 (150-450) k/uL Neutrophils % 58 % Lymphocytes % 33 % Monocytes % 4 % Eosinophils % 3 % Basophils % 1 % Neutrophils # 5.7 (1.3-7.7) k/uL Lymphocytes # 3.2 (1.0-4.8) k/uL Monocytes # 0.4 (0-1.0) k/uL Eosinophils # 0.3 (0-0.7) k/uL Basophils # 0.1 (0-0.2) k/uL PT 10.3 (9.0-12.0) sec INR 1.0 (<1.2) APTT 25.1 (22.0-30.0) sec D-Dimer 0.35 (<0.60) mg/L FEU Sodium 143 (137-145) mmol/L Potassium 4.2 (3.5-5.1) mmol/L Chloride 111 H (98-107) mmol/L Carbon Dioxide 25 (22-30) mmol/L Anion Gap 7 mmol/L BUN 8 L (9-20) mg/dL Creatinine 0.81 (0.66-1.25) mg/dL Est GFR (CKD-EPI)AfAm >90 (>60 ml/min/1.73 sqM) Est GFR (CKD-EPI)NonAf >90 (>60 ml/min/1.73 sqM) Glucose 83 (74-99) mg/dL Calcium 9.6 (8.4-10.2) mg/dL Magnesium 1.9 (1.6-2.3) mg/dL Total Bilirubin 0.7 (0.2-1.3) mg/dL AST 19 (17-59) U/L ALT 38 (21-72) U/L Alkaline Phosphatase 68 (38-126) U/L Troponin I (0.000-0.034) ng/mL NT-Pro-B Natriuret Pep pg/mL Total Protein 6.4 (6.3-8.2) g/dL Albumin 4.1 (3.5-5.0) g/dL 04/22/18 04/22/18 Range/Units 11:45 11:45 WBC (3.8-10.6) k/uL RBC (4.30-5.90) m/uL Hgb (13.0-17.5) gm/dL Hct (39.0-53.0) % MCV (80.0-100.0) fL MCH (25.0-35.0) pg MCHC (31.0-37.0) g/dL RDW (11.5-15.5) % Plt Count (150-450) k/uL Neutrophils % % Lymphocytes % % Monocytes % % Eosinophils % % Basophils % % Neutrophils # (1.3-7.7) k/uL Lymphocytes # (1.0-4.8) k/uL Monocytes # (0-1.0) k/uL Eosinophils # (0-0.7) k/uL Basophils # (0-0.2) k/uL PT (9.0-12.0) sec INR (<1.2) APTT (22.0-30.0) sec D-Dimer (<0.60) mg/L FEU Sodium (137-145) mmol/L Potassium (3.5-5.1) mmol/L Chloride (98-107) mmol/L Carbon Dioxide (22-30) mmol/L Anion Gap mmol/L BUN (9-20) mg/dL Creatinine (0.66-1.25) mg/dL Est GFR (CKD-EPI)AfAm (>60 ml/min/1.73 sqM) Est GFR (CKD-EPI)NonAf (>60 ml/min/1.73 sqM) Glucose (74-99) mg/dL Calcium (8.4-10.2) mg/dL Magnesium (1.6-2.3) mg/dL Total Bilirubin (0.2-1.3) mg/dL AST (17-59) U/L ALT (21-72) U/L Alkaline Phosphatase (38-126) U/L Troponin I <0.012 (0.000-0.034) ng/mL NT-Pro-B Natriuret Pep 75 pg/mL Total Protein (6.3-8.2) g/dL Albumin (3.5-5.0) g/dL - Radiology Data Radiology results: report reviewed (Unable to do images at this time secondary to PACs system being down. Report as cardiomegaly, COPD, atelectasis) Disposition Clinical Impression: Chest pain Disposition: ADMITTED IP TO THIS HOSP Is patient prescribed a controlled substance at d/c from ED?: No Referrals: Rebekah Maldonado DO [Primary Care Provider] - 1-2 days Decision Time: 14:36
[2018-04-22 12:23] LABS: Basophils # (A) 0.1 k/uL (0-0.2); Basophils % (A) 1 %; Eosinophils # (A) 0.3 k/uL (0-0.7); Eosinophils % (A) 3 %; HCT 48.5 % (39.0-53.0); HGB 16.2 gm/dL (13.0-17.5); Lymphocytes # (A) 3.2 k/uL (1.0-4.8); Lymphocytes % (A) 33 %; MCH 31.9 pg (25.0-35.0); MCHC 33.5 g/dL (31.0-37.0); MCV 95.2 fL (80.0-100.0); Mean Platelet Volume 8.7; Monocytes # (A) 0.4 k/uL (0-1.0); Monocytes % (A) 4 %; Neutrophils # (A) 5.7 k/uL (1.3-7.7); Neutrophils % (A) 58 %; Platelet Count 177 k/uL (150-450); RBC 5.09 m/uL (4.30-5.90); RDW 13.5 % (11.5-15.5); WBC 9.8 k/uL (3.8-10.6)
[2018-04-22 12:24] LABS: ALT 38 U/L (21-72); AST 19 U/L (17-59); Albumin 4.1 g/dL (3.5-5.0); Alkaline Phosphatase 68 U/L (38-126); Anion Gap 7 mmol/L; Blood Urea Nitrogen 8 mg/dL (9-20); Calcium 9.6 mg/dL (8.4-10.2); Carbon Dioxide 25 mmol/L (22-30); Chloride 111 mmol/L (98-107); Glucose 83 mg/dL (74-99); Magnesium 1.9 mg/dL (1.6-2.3); Potassium 4.2 mmol/L (3.5-5.1); Sodium 143 mmol/L (137-145); Total Bilirubin 0.7 mg/dL (0.2-1.3); Total Protein 6.4 g/dL (6.3-8.2)
[2018-04-22 12:32] LABS: D-Dimer 0.35 mg/L FEU (<0.60); Partial Thromboplastin Time 25.1 sec (22.0-30.0); Prothrombin Time 10.3 sec (9.0-12.0)
--- NOTE | 2018-04-22 13:46 | XR ---
EXAMINATION TYPE: XR chest 2V DATE OF EXAM: 04/22/2018 COMPARISON: CXR from yesterday. HISTORY: Near syncope per technologist. Chest pain per order. TECHNIQUE: Frontal and lateral views of the chest are obtained. FINDINGS: There is chronic parenchymal change with new left basilar linear atelectasis. Right lung i s clear. No pleural effusion or pneumothorax is evident bilaterally. The cardiac silhouette size is s table and mildly enlarged. Surgical change left shoulder level is redemonstrated. IMPRESSION: Chronic emphysematous change and cardiomegaly with new right basilar linear atelectasis.
[2018-04-22] MEDS ORDERED: NITROGLYCERIN SL TABS 0.4 MG TAB SUBLINGUAL PRN (14:41)
[2018-04-22 15:05] VITALS: BMI 24.3
[2018-04-22] MEDS ORDERED: ALPRAZolam 0.5 MG TAB PO PRN (15:18)
--- NOTE | 2018-04-22 15:50 | P.HPIM ---
History of Present Illness H&P Date: 04/22/18 This is a 67-year-old male patient of Dr. Maldonado. Patient presented to ER with complaints of chest pain and weakness to lower extremities. Patient reports that he walked approximately 1 mile this a.m. to store and upon arriving he became weak and started having chest tightness. Patient reports this has been intermittently happening 4-5 times in the past month. Patient denies any shortness of breath or diaphoresis with occurrence. Patient reports that he walks and bikes daily. Patient denies any significant cardiac history. Patient denies any family history of heart disease. Patient denies alcohol consumption. Patient has a past medical history of angina, GERD, hearing disorder, hyp erlipidemia, vascular disorder, melanoma skin cancer right ear rate temporally notes, hiatal hernia, tinnitus, anxiety, depression and current every day smoker patient reports he smokes approximately 1 pack 3 days. Chest x-ray completed in ER showing chronic emphysematous change in cardiomegaly with new right basilar linear atelectasis. EKG completed showing normal sinus rhythm, left axis deviat ion, nonspecific ST abnormality. At this time patient denies chest pain or shortness of breath. Patient denies nausea vomiting or diarrhea. Patient denies any urinary burning or frequency. At rest patient's heart rate dropping down to 43. Patient currently on telemetry monitoring. Cardiology services have been consulted. Initial troponin negative. 2-D echo has been ordered. Review of Systems Please refer to HPI otherwise unremarkable Past Medical History Past Medical History: Cancer, Chest Pain / Angina, GERD/Reflux, Hearing Disorder / Deafness, Hyperlipidemia, Vascular Disorder Additional Past Medical History / Comment(s): Pt states he has had generalized weakness/fatigue past couple months, Melanoma removed R ear/R episcopalian/nose, basal cell skin cancer removals, hiatal hernia, benign colon polyp, bilateral tinnitis, MENOMINEE bilaterally, vertigo, varicose veins bilateral legs. History of Any Multi-Drug Resistant Organisms: None Reported Past Surgical History: Adenoidectomy, Cholecystectomy, Hernia Repair, Orthopedic Surgery, Tonsillectomy Additional Past Surgical History / Comment(s): R inguinal hernia repair, R ear/R episcopalian and nose melanoma removals, basal skin cancer removals, L shoulder rotator cuff repair, colonoscopy/polypectomy Past Anesthesia/Blood Transfusion Reactions: No Reported Reaction Smoking Status: Current every day smoker - Past Family History Father Family Medical History: Cancer Additional Family Medical History / Comment(s): colorectal cancer Mother Family Medical History: No Reported History Additional Family Medical History / Comment(s): Mother lived into her 80s. Medications and Allergies Home Medications Medication Instructions Recorded Confirmed Type Gabapentin 600 mg PO HS 04/06/15 04/22/18 History Omeprazole 40 mg PO HS 04/06/15 04/22/18 History Atorvastatin [Lipitor] 10 mg PO HS 07/31/15 04/22/18 History ALPRAZolam [Xanax] 0.5 mg PO DAILY PRN 04/21/18 04/22/18 History Meclizine [Antivert] 25 mg PO TID #20 tab 04/21/18 04/22/18 Rx Allergies Allergy/AdvReac Type Severity Reaction Status Date / Time No Known Allergies Allergy Verified 04/22/18 12:04 Physical Exam Vitals: Vital Signs Temp Pulse Resp BP Pulse Ox 04/22/18 15:32 98 04/22/18 14:30 58 L 129/79 96 04/22/18 14:00 43 L 115/81 98 04/22/18 13:30 44 L 134/78 96 04/22/18 13:00 46 L 109/73 97 04/22/18 12:30 56 L 108/79 97 04/22/18 12:00 48 L 95/74 99 04/22/18 11:43 91 29 H 105/87 96 04/22/18 11:41 97.7 F 93 18 105/87 96 Intake and Output 04/22/18 04/22/18 04/22/18 06:59 14:59 22:59 Other: Voiding Method Toilet # Voids 1 Weight 72.665 kg Head normocephalic Neck supple Lungs clear to auscultation bilaterally no wheezing or crackles Heart regular rate and rhythm S1-S2, no rub or gallop Abdomen is soft nontender nondistended positive bowel sounds no hepatosplenomegaly Extremities no edema Neuro alert and orientated to 3 Results CBC & Chem 7: 04/22/18 11:45 04/22/18 11:45 Labs: Abnormal Lab Results - Last 24 Hours (Table) 04/22/18 Range/Units 11:45 Chloride 111 H (98-107) mmol/L BUN 8 L (9-20) mg/dL Thrombosis Risk Factor Assmnt - Choose All That Apply Any of the Below Risk Factors Present?: Yes Other Risk Factors: Yes Each Risk Factor Represents 2 Points: Age 61-74 years, Malignancy Other congenital or acquired thrombophilia - If yes, enter type in comment: No Thrombosis Risk Factor Assessment Total Risk Factor Score: 4 Thrombosis Risk Factor Assessment Level: Moderate Risk Assessment and Plan Assessment: 1. Chest pain with increased weakness. Initial Troponin negative. EKG completed showing normal sinus rhythm with left axis deviation, nonspecific ST abnormality. Chest x-ray completed showing chronic and symptomatic change in cardiomegaly with new right basilar linear atelectasis. Cardiology services have been consulted. 2-D echo has been ordered. Serial troponins ordered 2. Bradycardia. Heart rate 43 at rest. This could be contributing to patient's symptoms. Cardiology service is consulted 2-D echo ordered 3. Nicotine dependence. Patient educated greater than 3 minutes on smoking cessation. Patient declined nicotine patch at this time 4. History of GERD 5. History of hiatal hernia 6. Anxiety and depression 7. History of cholecystectomy 8. Bilateral tendinitis with hearing disorder 9. History of skin cancer 10. Marijuana use Time with Patient: Greater than 30 (Greater than 60% of the total time spent in counseling and coordination of care. I performed an examination of the patient and discussed their management with the Nurse Practitioner. I have reviewed the Nurse Practitioner's notes and agree with the documented findings and plan of care)
[2018-04-22] MEDS: MECLIZINE 25 MG TAB PO SCH (17:16)
--- NOTE | 2018-04-22 18:01 | ECHOF ---
Referral Reason:Chest pain, fatigue MEASUREMENTS -------- HEIGHT: 172.7 cm WEIGHT: 72.6 kg BP: 129/79 RVIDd: 2.8 cm (< 3.3) IVSd: 1.2 cm (0.6 - 1.1) LVIDd: 5.0 cm (3.9 - 5.3) LVPWd: 1.2 cm (0.6 - 1.1) IVSs: 1.6 cm LVIDs: 2.7 cm LVPWs: 1.6 cm LAESV Index (A-L): 20.01 ml/m Ao Diam: 4.1 cm (2.0 - 3.7) AV Cusp: 1.8 cm (1.5 - 2.6) LA Diam: 2.7 cm (2.7 - 3.8) MV E Bryan: 0.78 m/s MV DecT: 256 ms MV A Bryan: 0.62 m/s MV E/A Ratio: 1.27 RAP: 5.00 mmHg RVSP: 13.49 mmHg FINDINGS -------- Resting bradycardia (HR<60bpm). This was a technically good study. The left ventricular size is normal. There is mild concentric left ventricular hypertrophy. Overa ll left ventricular systolic function is normal with, an EF between 55 - 60 %. The right ventricle is normal in size and function. Normal LA size by volume 22+/-6 ml/m2. RA appears enlarged. Aortic valve is trileaflet and is mildly thickened. Trace amount of aortic regurgitation. There is no evidence of aortic stenosis. The mitral valve leaflets are mildly thickened. Mild mitral annular calcification present. There is trace to mild mitral regurgitation. Trace tricuspid regurgitation present. Right ventricular systolic pressure is normal at < 35 mmHg. There is no evidence of pulmonary hypertension. Trace/mild (physiologic) pulmonic regurgitation. The aortic root is mildy dilated up to 3.8 cm. Normal inferior vena cava with normal inspiratory collapse consistent with estimated right atrial pre ssure of 5 mmHg. There is no pericardial effusion. CONCLUSIONS -------- 1. Resting bradycardia (HR<60bpm). 2. This was a technically good study. 3. The left ventricular size is normal. 4. There is mild concentric left ventricular hypertrophy. 5. Overall left ventricular systolic function is normal with, an EF between 55 - 60 %. 6. Normal LA size by volume 22+/-6 ml/m2. 7. RA appears enlarged. 8. Aortic valve is trileaflet and is mildly thickened. 9. Trace amount of aortic regurgitation. 10. There is no evidence of aortic stenosis. 11. The mitral valve leaflets are mildly thickened. 12. Mild mitral annular calcification present. 13. There is trace to mild mitral regurgitation. 14. Trace tricuspid regurgitation present. 15. Right ventricular systolic pressure is normal at < 35 mmHg. 16. There is no evidence of pulmonary hypertension. 17. Trace/mild (physiologic) pulmonic regurgitation. 18. The aortic root is mildy dilated up to 3.8 cm. 19. There is no pericardial effusion. HEMATOLOGY NURSE EDUCATOR: Lio Mccauley RDCS
[2018-04-22] MEDS: NITROGLYCERIN OINT 1 INCH/GM PACKET TOPICAL SCH (20:59)
[2018-04-22] MEDS ORDERED: PANTOPRAZOLE 40 MG TABLET PO SCH (21:00)
[2018-04-22] MEDS ORDERED: ATORVASTATIN 10 MG TAB PO SCH (21:00)
[2018-04-22] MEDS ORDERED: GABAPENTIN 300 MG CAP PO SCH (21:00)
[2018-04-22] MEDS ORDERED: ACETAMINOPHEN TAB 325 MG TAB PO PRN (22:45)
[2018-04-23] MEDS: MECLIZINE 25 MG TAB PO SCH
[2018-04-23] MEDS: NITROGLYCERIN OINT 1 INCH/GM PACKET TOPICAL SCH ×2 (01:09→05:56)
[2018-04-23 07:20] LABS: Basophils # (A) 0.1 k/uL (0-0.2); Basophils % (A) 1 %; Eosinophils # (A) 0.4 k/uL (0-0.7); Eosinophils % (A) 4 %; HCT 50.4 % (39.0-53.0); HGB 15.9 gm/dL (13.0-17.5); Lymphocytes # (A) 2.9 k/uL (1.0-4.8); Lymphocytes % (A) 30 %; MCH 30.4 pg (25.0-35.0); MCHC 31.5 g/dL (31.0-37.0); MCV 96.4 fL (80.0-100.0); Mean Platelet Volume 8.4; Monocytes # (A) 0.5 k/uL (0-1.0); Monocytes % (A) 5 %; Neutrophils # (A) 5.5 k/uL (1.3-7.7); Neutrophils % (A) 58 %; Platelet Count 185 k/uL (150-450); RBC 5.23 m/uL (4.30-5.90); RDW 13.6 % (11.5-15.5); WBC 9.5 k/uL (3.8-10.6)
[2018-04-23 07:26] LABS: ALT 35 U/L (21-72); AST 22 U/L (17-59); Albumin 3.9 g/dL (3.5-5.0); Alkaline Phosphatase 80 U/L (38-126); Anion Gap 5 mmol/L; Blood Urea Nitrogen 17 mg/dL (9-20); Calcium 9.4 mg/dL (8.4-10.2); Carbon Dioxide 25 mmol/L (22-30); Chloride 111 mmol/L (98-107); Cholesterol 116 mg/dL (<200); Glucose 81 mg/dL (74-99); HDL Cholesterol 33 mg/dL (40-60); LDL Cholesterol,Calculated 54 mg/dL (0-99); Potassium 4.3 mmol/L (3.5-5.1); Sodium 141 mmol/L (137-145); Total Bilirubin 0.5 mg/dL (0.2-1.3); Total Protein 6.3 g/dL (6.3-8.2); Triglycerides 147 mg/dL (<150)
[2018-04-23 08:05] VITALS: BP 137/88; PULSE 69; RESP 18; TEMP 98.1
[2018-04-23] MEDS ORDERED: REGADENOSON 0.4 MG/5 ML SYRINGE IV ONE (08:39)
[2018-04-23] MEDS ORDERED: CAFFEINE CITRATE 60 MG/3 ML VIAL IV PRN (08:39)
[2018-04-23] MEDS ORDERED: ASPIRIN 325 MG TAB PO SCH (09:00)
--- NOTE | 2018-04-23 12:24 | NM ---
EXAMINATION TYPE: NM stress lexiscan cardiolite DATE OF EXAM: 04/23/2018 COMPARISON: NONE HISTORY: Chest pain and hypertension TECHNIQUE: After the intravenous administration of 10.08 mCi Tc 99m Sestamibi - Cardiolite resting S PECT images acquired 45 minutes post injection. The patient received 0.4mg Lexiscan, 25.6 mCi Tc 99m Sestamibi - Stress images obtained [address] injection FINDINGS: Review of stress and rest SPECT images demonstrates no distinct perfusion abnormality. Small apical f ixed defect likely represents physiologic apical thinning. Anterolateral defects on rest imaging do n ot persist on stress imaging and relate to artifact. Gated analysis shows normal wall motion with an estimated left ventricular ejection fraction of 65 %. TID is calculated at 1.07, within normal limit s. IMPRESSION: No scintigraphic evidence for reversible ischemia.
--- NOTE | 2018-04-23 12:34 | P.DS ---
Providers Date of admission: 04/22/18 14:43 Expected date of discharge: 04/23/18 Attending physician: Yandel Croft Consults: 04/22/18 14:41 Consult Physician Urgent Consulting Provider: Diana Coppola Consult Reason/Comments: cp Do you want consulting provider notified?: Yes Primary care physician: Rebekah [facility] Course: Discharge diagnosis Patient left AGAINST MEDICAL ADVICE 1. Chest pain with increased weakness. Initial Troponin negative. EKG completed showing normal sinus rhythm with left axis deviation, nonspecific ST abnormality. Chest x-ray completed showing chronic and symptomatic change in cardiomegaly with new right basilar linear atelectasis. Troponins negative 3. Patient did have 2-D echo completed this a.m. showing resting bradycardia in an EF of 55-60%. Patient underwent stress test but was very upset due to length of testing and left AGAINST MEDICAL ADVICE. 2. Bradycardia. Heart rate 43 at rest. This could be contributing to patient's symptoms. Cardiology service is consulted 2-D echo ordered 3. Nicotine dependence. Patient educated greater than 3 minutes on smoking cessation. Patient declined nicotine patch at this time 4. History of GERD 5. History of hiatal hernia 6. Anxiety and depression 7. History of cholecystectomy 8. Bilateral tendinitis with hearing disorder 9. History of skin cancer 10. Marijuana use Hospital course This is a 67-year-old male patient of Dr. Maldonado. Patient presented to ER with complaints of chest pain and weakness to lower extremities. Patient reports that he walked approximately 1 mile this a.m. to store and upon arriving he became weak and started having chest tightness. Patient reports this has been intermittently happening 4-5 times in the past month. Patient denies any shortness of breath or diaphoresis with occurrence. Patient reports that he walks and bikes daily. Patient denies any significant cardiac history. Patient denies any family history of heart disease. Patient denies alcohol consumption. Patient has a past medical history of angina, GERD, hearing disorder, hyperlipidemia, vascular disorder, melanoma skin cancer right ear rate temporally notes, hiatal hernia, tinnitus, anxiety, depression and current every day smoker patient reports he smokes approximately 1 pack 3 days. Chest x-ray completed in ER showing chronic emphysematous change in cardiomegaly with new right basilar linear atelectasis. EKG completed showing normal sinus rhythm, left axis deviation, nonspecific ST abnormality. At this time patient denies chest pain or shortness of breath. Patient denies nausea vomiting or diarrhea. Patient denies any urinary burning or frequency. At rest patient's heart rate dropping down to 43. Patient currently on telemetry monitoring. Cardiology services have been consulted. Initial troponin negative. 2-D echo has been ordered. On 04/23/2018 patient upset due to things moving at a slower pace than expected. Patient was explained yesterday that stress test would likely be completed this a.m. by cardiology services. Patient thought this would be sooner. At this time patient still is having mild chest discomfort. Explained at length to patient that this could be something more serious such as a heart attack and patient would benefit from stress test. Patient agreed to stress test. Informed by nursing staff that patient post stress test was very upset due to length of test and left AMA when he got back from stress test. Per nursing staff patient refused to sign AMA paperwork. Per nursing staff patient was informed that the results have not been read by cardiology and this could be something more serious resulting in patient's . Patient declined any further workup and left AGAINST MEDICAL ADVICE. I performed an examination of the patient and discussed their management with the Nurse Practitioner. I have reviewed the Nurse Practitioner's notes and agree with the documented findings and plan of care Patient Condition at Discharge: Stable Plan - Discharge Summary Discharge Rx Participant: No New Discharge Prescriptions: No Action Omeprazole 40 mg PO HS Gabapentin 600 mg PO HS Atorvastatin [Lipitor] 10 mg PO HS ALPRAZolam [Xanax] 0.5 mg PO DAILY PRN PRN Reason: Anxiety Meclizine [Antivert] 25 mg PO TID #20 tab Discharge Medication List Gabapentin 600 mg PO HS 04/06/15 [History] Omeprazole 40 mg PO HS 04/06/15 [History] Atorvastatin [Lipitor] 10 mg PO HS 07/31/15 [History] ALPRAZolam [Xanax] 0.5 mg PO DAILY PRN 04/21/18 [History] Meclizine [Antivert] 25 mg PO TID #20 tab 04/21/18 [Rx] Follow up Appointment(s)/Referral(s): Rebekah Maldonado, [Primary Care Provider] - 1-2 days
--- NOTE | 2018-04-23 13:00 | P.CRDCN ---
History of Present Illness Consult date: 04/23/18 Reason for Consult (text): chest pain Chief complaint: Chest pain. History of present illness: HPI and plan: This is a 67-year-old male who presents in the emergency department for chest pain/pressure, centrally located, "feels like a brick sitting on my chest." Patient states chest pain started when walking this a.m and has been on and off for the past 4-5 months. Patient usually walks 2-3 miles every other day and is an avid cyclist. Patient rates the pain as a 6 out of 10. Pt states pain goes AWAY with movement. Patient states he had mild shortness of breath and nausea. Complaints of generalized weakness off and on over the past couple months. Patient states he has a history of bradycardia. He is a current smoker one pack every 3 days. Patient states last stress test was 10-15 years ago. No diabetes. Pt currently pacing up and down unit, pt has no current c/o of chest pain or discomfort with ambulation in hallway. Significant medical hx includes: Questionable EtOH, bradycardia, angina, GERD, H OH, hyperlipidemia, melanoma, hiatal hernia, vascular disease, anxiety and depression. Current smoker one pack every 3 days. EKG shows sinus rhythm, at a rate of 65 beats per minute. Troponins negative x 3. Chest x-ray = Positive for cardiomegaly Positive emphysema changes. Significant laboratory values include: CBC, WNL. BMP, WNL. D dimer, WNL. Troponins negative x 3. Most recent echo dated 04/22/2018 indicates EF 55-60% mild concentric left ventricular hypertrophy. Right atrium enlarged. Plan: Lexiscan stress testing indicated for multiple risk factors hyperlipidemia, one pack q 3 days current smoker. Keep pt NPO, with negative stress testing heart healthy diet. With negative stress testing clear from a cardiology standpoint for discharge. Review of Systems At the time of my exam: CONSTITUTIONAL: [Denies fever. Denies chills.] EYES: Denies blurred vision. [Denies vision changes. Denies eye pain.] EARS, NOSE, MOUTH & THROAT: [Denies headache. Denies sore throat. Denies ear pain.] CARDIOVASCULAR: [Complains of chest pain, none currently. Complains of shortness of breath, none currently. Denies orthopnea. Denies PND. Denies palpitations.] RESPIRATORY: [Denies cough. Complains of shortness of breath, none currently. ] GASTROINTESTINAL: [Denies abdominal pain. Denies diarrhea. Denies constipation. Denies nausea. Denies vomiting.] MUSCULOSKELETAL: [Denies myalgias.] INTEGUMENTARY: [Denies pruitis. Denies rash.] NEUROLOGIC: [Denies numbness. Denies tingling. Denies weakness.] PSYCHIATRIC: [Denies anxiety. Denies depression.] ENDOCRINE: [Complains of fatigue. Denies weight change. Denies polydipsia. Denies polyurina.] GENITOURINARY:[ Denies burning, hematuria or urgency with micturation.] HEMATOLOGIC: [Denies history of anemia. Denies bleeding.] Past Medical History Past Medical History: Cancer, Chest Pain / Angina, GERD/Reflux, Hearing Disorder / Deafness, Hyperlipidemia, Vascular Disorder Additional Past Medical History / Comment(s): Pt states he has had generalized weakness/fatigue past couple months, Melanoma removed R ear/R yarsani/nose, basal cell skin cancer removals, hiatal hernia, benign colon polyp, bilateral tinnitis, [place] bilaterally, vertigo, varicose veins bilateral legs. History of Any Multi-Drug Resistant Organisms: None Reported Past Surgical History: Adenoidectomy, Cholecystectomy, Hernia Repair, Orthopedic Surgery, Tonsillectomy Additional Past Surgical History / Comment(s): R inguinal hernia repair, R ear/R yarsani and nose melanoma removals, basal skin cancer removals, L shoulder rotator cuff repair, colonoscopy/polypectomy Past Anesthesia/Blood Transfusion Reactions: No Reported Reaction Smoking Status: Current every day smoker - Past Family History Father Family Medical History: Cancer Additional Family Medical History / Comment(s): colorectal cancer Mother Family Medical History: No Reported History Additional Family Medical History / Comment(s): Mother lived into her 80s. Medications and Allergies Home Medications Medication Instructions Recorded Confirmed Type Gabapentin 600 mg PO HS 04/06/15 04/22/18 History Omeprazole 40 mg PO HS 04/06/15 04/22/18 History Atorvastatin [Lipitor] 10 mg PO HS 07/31/15 04/22/18 History ALPRAZolam [Xanax] 0.5 mg PO DAILY PRN 04/21/18 04/22/18 History Meclizine [Antivert] 25 mg PO TID #20 tab 04/21/18 04/22/18 Rx Allergies Allergy/AdvReac Type Severity Reaction Status Date / Time No Known Allergies Allergy Verified 04/22/18 12:04 Physical Exam Vitals: Vital Signs Temp Pulse Pulse Resp BP BP Pulse Ox 04/23/18 08:00 98.1 F 69 18 137/88 96 04/23/18 04:00 97.8 F 66 14 117/74 94 L 04/23/18 02:51 57 L 15 04/23/18 00:00 97.9 F 57 L 15 98/46 97 04/22/18 20:00 57 L 15 04/22/18 19:27 98.4 F 49 L 15 98/51 96 04/22/18 16:00 97.5 F L 50 L 18 119/74 98 04/22/18 15:32 98 04/22/18 14:30 58 L 129/79 96 04/22/18 14:00 43 L 115/81 98 04/22/18 13:30 44 L 134/78 96 04/22/18 13:00 46 L 109/73 97 Intake and Output 04/22/18 04/23/18 04/23/18 22:59 06:59 14:59 Intake Total 118 Balance 118 Intake: Oral 118 Other: Voiding Method Toilet Toilet Toilet # Voids 1 2 Weight 72 kg 71.668 kg GENERAL: This is a []-year-old [] in no apparent distress at the time of my examination. HEENT: Head is atraumatic, normocephalic. Pupils are equal, round. Sclerae anicteric. Conjunctivae are clear. Mucous membranes of the mouth are moist. Neck is supple. There is no jugular venous distention. No carotid bruit is heard. No thyromegaly. LUNGS: Diminished to auscultation no wheezes, rales or rhonchi. No chest wall tenderness is noted on palpation or with deep breathing. HEART: Regular rate and rhythm without murmurs, rubs or gallops. S1 and S2 heard. ABDOMEN: Abdominal exam revealed normal bowel sounds. The abdomen was soft, non- tender, and without masses, organomegaly, or appreciable enlargement of the abdominal aorta. EXTREMITIES: Examination of the extremities revealed easily palpable radial, femoral and pedal pulses. There was no cyanosis, clubbing or edema. No calf tenderness noted. VASCULAR: Radial and dorsalis pedis pulses palpated, no evidence of clubbing. NEUROLOGIC: Patient is awake, alert and oriented x3. There were no obvious focal neurologic abnormalities. Results 04/23/18 06:41 04/23/18 06:41 Cardiac Enzymes 04/22/18 04/22/18 04/22/18 Range/Units 11:45 17:33 23:47 AST (17-59) U/L Troponin I <0.012 <0.012 <0.012 (0.000-0.034) ng/mL 04/23/18 Range/Units 06:41 AST 22 (17-59) U/L Troponin I (0.000-0.034) ng/mL Lipids 04/23/18 Range/Units 06:41 Triglycerides 147 (<150) mg/dL Cholesterol 116 (<200) mg/dL HDL Cholesterol 33 L (40-60) mg/dL CBC 04/23/18 Range/Units 06:41 WBC 9.5 (3.8-10.6) k/uL RBC 5.23 (4.30-5.90) m/uL Hgb 15.9 (13.0-17.5) gm/dL Hct 50.4 (39.0-53.0) % Plt Count 185 (150-450) k/uL Comprehensive Metabolic Panel 04/23/18 Range/Units 06:41 Sodium 141 (137-145) mmol/L Potassium 4.3 (3.5-5.1) mmol/L Chloride 111 H (98-107) mmol/L Carbon Dioxide 25 (22-30) mmol/L BUN 17 (9-20) mg/dL Creatinine 0.83 (0.66-1.25) mg/dL Glucose 81 (74-99) mg/dL Calcium 9.4 (8.4-10.2) mg/dL AST 22 (17-59) U/L ALT 35 (21-72) U/L Alkaline Phosphatase 80 (38-126) U/L Total Protein 6.3 (6.3-8.2) g/dL Albumin 3.9 (3.5-5.0) g/dL Intake and Output 04/22/18 04/23/18 04/23/18 22:59 06:59 14:59 Intake Total 118 Balance 118 Intake: Oral 118 Other: Voiding Method Toilet Toilet Toilet # Voids 1 2 Weight 72 kg 71.668 kg Patient Weight 04/24/18 06:59 Weight 71.668 kg 04/23/18 06:41 04/23/18 06:41 - EKG Interpretation EKG: sinus rhythm (, HR 60) Assessment and Plan (1) Chest pain Status: Acute Code(s): R07.9 - CHEST PAIN, UNSPECIFIED SNOMED Code(s): 2 3369779 Plan: Lexiscan stress testing indicated for multiple risk factors hyperlipidemia, one pack q 3 days current smoker. Keep pt NPO, with negative stress testing heart healthy diet. With negative stress testing clear from a cardiology standpoint for discharge. Pt went AMA after leaving stress testing.
--- NOTE | 2018-04-24 09:18 | EST ---
EXERCISE STRESS DATE OF SERVICE: 04/23/2018 AGE: 67 SEX: Male HT: 5'8" WT: 158 PROTOCOL: Lexiscan Cardiolite STAGE: DURATION OF EXERCISE: HEART RATE REST: 46 BLOOD PRESSURE REST: 147/89 MAXIMUM HEART RATE ACHIEVED: 100 MAXIMUM BLOOD PRESSURE: 136/64 85% MPHR: 132 100% MPHR: 155 METS: INDICATIONS: Chest pain. CLINICAL INFORMATION: STRESS DATA: Heart rate 46, pressure is 147/89 mmHg. Baseline EKG showed sinus mechanism. The patient was given 0.4 mg of Lexiscan over 15 seconds per protocol. Max heart rate was 100 beats per minute. Maximum pressure was 147/89 mmHg. Clinically the patient did not have any symptoms of chest pain or discomfort and the EKG did not show any significant ST or T-wave abnormalities concerning for ischemia. CONCLUSION: 1. Nondiagnostic electrocardiogram stress testing in response to Lexiscan. 2. Please follow up on the Cardiolite portion on separate report from the radiology department. MMODL / IJN: [id number] /
== END 2018-04-23 12:15 | disposition left against medical advice (07) ==
LOC: EC 11:38 → 1SOBS 14:43
PROVIDERS: ADMIT Internal Medicine; ATTEND Internal Medicine
DX: R07.89 Other chest pain (principal); J98.11 Atelectasis; R53.1 Weakness; I51.7 Cardiomegaly; R00.1 Bradycardia, unspecified; J43.9 Emphysema, unspecified; K21.9 Gastro-esophageal reflux disease without esophagitis; E78.5 Hyperlipidemia, unspecified; K44.9 Diaphragmatic hernia without obstruction or gangrene; I83.93 Asymptomatic varicose veins of bilateral lower extremities; F41.9 Anxiety disorder, unspecified; F32.9 Major depressive disorder, single episode, unspecified; H91.90 Unspecified hearing loss, unspecified ear; H93.13 Tinnitus, bilateral; F17.210 Nicotine dependence, cigarettes, uncomplicated; F12.90 Cannabis use, unspecified, uncomplicated; Z79.899 Other long term (current) drug therapy; Z85.828 Personal history of other malignant neoplasm of skin; Z86.010 Personal history of colon polyps; Z85.820 Personal history of malignant melanoma of skin; Z90.49 Acquired absence of other specified parts of digestive tract; Z80.0 Family history of malignant neoplasm of digestive organs
CPT/HCPCS: 99285; 36415; 93005; 93017; 93306; 85379; 83880; 80061; 80053 ×2; 83735; 84484; 85025 ×2; 85610; 85730; 71046; 78452; G0378 ×2; A9500; J2785

== ENCOUNTER 2018-11-05 07:17 | Emergency (ER) | payer MEDICARE ==
[2018-11-05 07:21] VITALS: BP 161/97; PULSE 53; RESP 16; TEMP 98
[2018-11-05] MEDS ORDERED: SODIUM CHLORIDE 0.9% 1,000 ML IV STA (07:58)
[2018-11-05] MEDS ORDERED: KETOROLAC 30 MG/ML 1 ML VIAL IVP STA (07:58)
--- NOTE | 2018-11-05 08:02 | ED ---
Lower Extremity Injury HPI - General Chief Complaint: Extremity Injury, Lower Stated Complaint: Groin pain Time Seen by Provider: 11/05/18 07:27 Source: EMS, RN notes reviewed, old records reviewed Mode of arrival: EMS Limitations: no limitations - History of Present Illness Initial Comments: Patient is a 67-year-old male, presents emergency department today with intermittent right lower quadrant groin pain for the past few years. Patient reports that he told his primary care doctor this and had an outpatient ultrasound that last . He states that that was reviewed and showed no significant changes. Patient reports that he had sharp pain today. Patient states that the pain seems to come with resting as well as with movement. Patient states that he's had no change in urination or bowel habits. She reports that he had the hernia repair surgery proximally 6-7 years ago. He does not remember who his surgeon was at this time. He denies any fevers or chills. - Related Data Home Medications Medication Instructions Recorded Confirmed Omeprazole 40 mg PO HS 04/06/15 11/05/18 Atorvastatin [Lipitor] 10 mg PO HS 07/31/15 11/05/18 Allergies Allergy/AdvReac Type Severity Reaction Status Date / Time No Known Allergies Allergy Verified 11/05/18 07:43 Review of Systems ROS Statement: Those systems with pertinent positive or pertinent negative responses have been documented in the HPI. ROS Other: All systems not noted in ROS Statement are negative. Past Medical History Past Medical History: Cancer, Chest Pain / Angina, GERD/Reflux, Hearing Disorder / Deafness, Hyperlipidemia, Vascular Disorder Additional Past Medical History / Comment(s): Pt states he has had generalized weakness/fatigue past couple months, Melanoma removed R ear/R druze/nose, basal cell skin cancer removals, hiatal hernia, benign colon polyp, bilateral tinnitis, [place] bilaterally, vertigo, varicose veins bilateral legs. History of Any Multi-Drug Resistant Organisms: None Reported Past Surgical History: Adenoidectomy, Cholecystectomy, Hernia Repair, Orthopedic Surgery, Tonsillectomy Additional Past Surgical History / Comment(s): R inguinal hernia repair, R ear/R druze and nose melanoma removals, basal skin cancer removals, L shoulder rotator cuff repair, colonoscopy/polypectomy Past Anesthesia/Blood Transfusion Reactions: No Reported Reaction Past Psychological History: Anxiety, Depression Smoking Status: Current every day smoker - Past Family History Father Family Medical History: Cancer Additional Family Medical History / Comment(s): colorectal cancer Mother Family Medical History: No Reported History Additional Family Medical History / Comment(s): Mother lived into her 80s. General Exam - General Exam Comments Initial Comments: This is an alert and oriented 67-year-old male. No significant distress. Limitations: no limitations General appearance: alert, in no apparent distress Head exam: Present: atraumatic, normocephalic, normal inspection Eye exam: Present: normal appearance, PERRL, EOMI. Absent: scleral icterus, conjunctival injection, periorbital swelling ENT exam: Present: normal exam, mucous membranes moist Neck exam: Present: normal inspection. Absent: tenderness, meningismus, lymphadenopathy Respiratory exam: Present: normal lung sounds bilaterally Cardiovascular Exam: Present: regular rate, normal rhythm, normal heart sounds. Absent: systolic murmur, diastolic murmur, rubs, gallop, clicks GI/Abdominal exam: Present: soft, normal bowel sounds, other (Eschar over the right lower quadrant and groin area from his hernia repair. No erythema. Nose and swelling. Tenderness over the right lower quadrant and scar area. No palpable masses.). Absent: distended, tenderness, guarding, rebound, rigid Back exam: Present: normal inspection Neurological exam: Present: alert, oriented X3, CN II-XII intact Course Vital Signs 11/05/18 07:18 Temperature 98.0 F Pulse Rate 53 L Respiratory 16 Rate Blood Pressure 161/97 O2 Sat by Pulse 98 Oximetry Medical Decision Making - Medical Decision Making 67-year-old male presents today with intermittent right groin pain for approximately one year. Patient reports no other symptoms associated with this at this time. It seems to be related to after he had his hernia repair. Ago. At this time Patient was offered laboratory head CT and urinalysis and pain medication. When nurse went to start the IV Patient became upset stating that at the same symptoms before with no and result. I was not able to discuss with Patient waiting to stay for labs and the possibility of infection or other processes Patient are day had left the emergency room and walked out. Patient lab AGAINST MEDICAL ADVICE. Her sink staff did attempt to talk to the Patient to have him return to the room and Patient was walking down the hallway refused to turn back. Disposition Clinical Impression: Right groin pain Disposition: Left Against Medical Advice Is patient prescribed a controlled substance at d/c from ED?: No Referrals: Rebekah Maldonado DO [Primary Care Provider] - 1-2 days Time of Disposition: 08:36
== END 2018-11-05 08:22 | disposition left against medical advice (07) ==
LOC: EC 07:17
DX: R10.31 Right lower quadrant pain (principal); K21.9 Gastro-esophageal reflux disease without esophagitis; E78.5 Hyperlipidemia, unspecified; F17.200 Nicotine dependence, unspecified, uncomplicated; Z85.820 Personal history of malignant melanoma of skin; Z85.828 Personal history of other malignant neoplasm of skin; Z86.010 Personal history of colon polyps; Z87.19 Personal history of other diseases of the digestive system; Z90.49 Acquired absence of other specified parts of digestive tract; Z98.890 Other specified postprocedural states; Z79.899 Other long term (current) drug therapy; Z53.29 Procedure and treatment not carried out because of patient's decision for other reasons
CPT/HCPCS: 99284

== ENCOUNTER 2021-03-07 14:47 | Emergency (ER) | payer MEDICARE ==
[2021-03-07 15:16] VITALS: BP 147/87; PULSE 87; RESP 18; TEMP 97.6
[2021-03-07 15:55] LABS: Basophils # (A) 0.1 k/uL (0-0.2); Basophils % (A) 1 %; Eosinophils # (A) 0.3 k/uL (0-0.7); Eosinophils % (A) 3 %; HCT 49.1 % (39.0-53.0); HGB 15.9 gm/dL (13.0-17.5); Lymphocytes % (A) 27 %; MCH 31.3 pg (25.0-35.0); MCHC 32.4 g/dL (31.0-37.0); MCV 96.6 fL (80.0-100.0); Mean Platelet Volume 9.3; Monocytes # (A) 0.4 k/uL (0-1.0); Monocytes % (A) 4 %; Neutrophils # (A) 7.4 k/uL (1.3-7.7); Neutrophils % (A) 66 %; Platelet Count 184 k/uL (150-450); RBC 5.09 m/uL (4.30-5.90); RDW 13.2 % (11.5-15.5); WBC 11.3 k/uL (3.8-10.6)
[2021-03-07 16:01] LABS: Appearance,Urine Clear (Clear); Bilirubin,Urine Negative (Negative); Blood,Urine Negative (Negative); Color,Urine Yellow; Glucose,Urine (UA) Negative (Negative); Hyaline Casts,Urine 4 /lpf (0-2); Ketones,Urine Trace (Negative); Leukocyte Esterase,Urine Trace (Negative); Mucus,Urine Many /hpf; Nitrite,Urine Negative (Negative); PH, Urine 5.5 (5.0-8.0); Protein,Urine Trace (Negative); RBC,Urine 3 /hpf (0-5); Specific Gravity,Urine 1.026 (1.001-1.035); WBC,Urine 2 /hpf (0-5)
[2021-03-07 16:06] LABS: ALT 22 U/L (4-49); AST 25 U/L (17-59); African American GFR (CKD) >90 (>60 ml/min/1.73 sqM); Albumin 4.2 g/dL (3.5-5.0); Alkaline Phosphatase 68 U/L (38-126); Anion Gap 8 mmol/L; Blood Urea Nitrogen 11 mg/dL (9-20); Calcium 9.6 mg/dL (8.4-10.2); Carbon Dioxide 25 mmol/L (22-30); Chloride 110 mmol/L (98-107); Glucose 102 mg/dL (74-99); Lipase 42 U/L (23-300); Non-African American GFR(CKD) 81 (>60 ml/min/1.73 sqM); Potassium 4.3 mmol/L (3.5-5.1); Sodium 143 mmol/L (137-145); Total Bilirubin 0.9 mg/dL (0.2-1.3); Total Protein 6.9 g/dL (6.3-8.2)
--- NOTE | 2021-03-07 16:10 | ED ---
General Adult HPI - General Chief complaint: Abdominal Pain Stated complaint: abd pain Time Seen by Provider: 03/07/21 15:20 Source: patient Mode of arrival: ambulatory Limitations: no limitations - History of Present Illness Initial comments: Dictation was produced using [employer] dictation software. please excuse any grammatical, word or spelling errors. Chief Complaint: 70-year-old male presents with bilateral lower quadrant abdomin al pain History of Present Illness: This 70-year-old male presents to the emergency department for bilateral lower quadrant abdominal pain. States that his pain has been increasingly worsening for the last couple days. He states he has a colonoscopy ordered for next week. He is unsure if he can make a colonoscopy appointment due to his pain. Patient states he's has not had a bowel movement in 4 days. He is still passing gas. Patient has any fever. No shortness of breath. No dysuria. The ROS documented in this emergency department record has been reviewed and confirmed by me. Those systems with pertinent positive or negative responses have been documented in the HPI. All other systems are other negative and/or noncontributory. PHYSICAL EXAM: General Impression: Alert and oriented x3, not in acute distress HEENT: Normocephalic atraumatic, extra-ocular movements intact, pupils equal and reactive to light bilaterally, mucous membranes moist. Cardiovascular: Heart regular rate and rhythm Chest: Able to complete full sentences, no retractions, no tachypnea Abdomen: abdomen soft, mild palpatory tenderness to the lower quadrants, non- distended, no organomegaly Musculoskeletal: Pulses present and equal in all extremities, no peripheral edema Motor: no focal deficits noted Neurological: CN II-XII grossly intact, no focal motor or sensory deficits noted Skin: Intact with no visualized rashes Psych: Normal affect and mood ED course: 70-year-old male with clinical presentation concerning for constipation. He has not had a bowel movement in 4 days. He reports that he s topped passing gas. Vital signs upon arrival are within acceptable limits. Laboratory evaluation obtained. It was said to 11.3 likely stress. Metabolic panel is negative. Urinalysis is negative. Computed tomography scan abdomen and pelvis shows no acute processes. No imaging evidence of constipation bowel obstruction. Patient evaluated to bedside at 5:40 PM. States his pain is gone. Patient states he's having these episodes of abdominal pain. Patient told that he would benefit from colonoscopy for further workup. Patient given pain medicine started pack. EKG interpretation: Ventricular rate patient, sinus bradycardia,. 150, QRS 84, QTC 397. No AR prolongation, no QTC prolongation, no ST or T-wave changes noted. EKG compared to 04/22/2018 showing no changes. Overall, this EKG is unremarkable - Related Data Home Medications Medication Instructions Recorded Confirmed Omeprazole 40 mg PO DAILY 04/06/15 03/07/21 Atorvastatin [Lipitor] 10 mg PO DAILY 07/31/15 03/07/21 Losartan Potassium [Cozaar] 25 mg PO DAILY 03/07/21 03/07/21 Allergies Allergy/AdvReac Type Severity Reaction Status Date / Time No Known Allergies Allergy Verified 03/07/21 17:30 Review of Systems ROS Statement: Those systems with pertinent positive or pertinent negative responses have been documented in the HPI. ROS Other: All systems not noted in ROS Statement are negative. Past Medical History Past Medical History: Cancer, Chest Pain / Angina, GERD/Reflux, Hearing Disorder / Deafness, Hyperlipidemia, Vascular Disorder Additional Past Medical History / Comment(s): Pt states he has had generalized weakness/fatigue past couple months, Melanoma removed R ear/R jewish/nose, basal cell skin cancer removals, hiatal hernia, benign colon polyp, bilateral tinnitis, [place] bilaterally, vertigo, varicose veins bilateral legs. History of Any Multi-Drug Resistant Organisms: None Reported Past Surgical History: Adenoidectomy, Cholecystectomy, Hernia Repair, Orthopedic Surgery, Tonsillectomy Additional Past Surgical History / Comment(s): R inguinal hernia repair, R ear/R jewish and nose melanoma removals, basal skin cancer removals, L shoulder rotator cuff repair, colonoscopy/polypectomy Past Anesthesia/Blood Transfusion Reactions: No Reported Reaction Past Psychological History: Anxiety, Depression Smoking Status: Never smoker Past Alcohol Use History: Occasional Past Drug Use History: Marijuana - Past Family History Father Family Medical History: Cancer Additional Family Medical History / Comment(s): colorectal cancer Mother Family Medical History: No Reported History Additional Family Medical History / Comment(s): Mother lived into her 80s. General Exam Limitations: no limitations Course Vital Signs 03/07/21 15:12 Temperature 97.6 F Pulse Rate 87 Respiratory 18 Rate Blood Pressure 147/87 O2 Sat by Pulse 99 Oximetry Medical Decision Making - Lab Data Result diagrams: 03/07/21 15:45 03/07/21 15:45 Lab Results 03/07/21 03/07/21 03/07/21 Range/Units 15:45 15:45 15:49 WBC 11.3 H (3.8-10.6) k/uL RBC 5.09 (4.30-5.90) m/uL Hgb 15.9 (13.0-17.5) gm/dL Hct 49.1 (39.0-53.0) % MCV 96.6 (80.0-100.0) fL MCH 31.3 (25.0-35.0) pg MCHC 32.4 (31.0-37.0) g/dL RDW 13.2 (11.5-15.5) % Plt Count 184 (150-450) k/uL MPV 9.3 Neutrophils % 66 % Lymphocytes % 27 % Monocytes % 4 % Eosinophils % 3 % Basophils % 1 % Neutrophils # 7.4 (1.3-7.7) k/uL Lymphocytes # 3.0 (1.0-4.8) k/uL Monocytes # 0.4 (0-1.0) k/uL Eosinophils # 0.3 (0-0.7) k/uL Basophils # 0.1 (0-0.2) k/uL Sodium 143 (137-145) mmol/L Potassium 4.3 (3.5-5.1) mmol/L Chloride 110 H (98-107) mmol/L Carbon Dioxide 25 (22-30) mmol/L Anion Gap 8 mmol/L BUN 11 (9-20) mg/dL Creatinine 0.97 (0.66-1.25) mg/dL Est GFR (CKD-EPI)AfAm >90 (>60 ml/min/1.73 sqM) Est GFR (CKD-EPI)NonAf 81 (>60 ml/min/1.73 sqM) Glucose 102 H (74-99) mg/dL Calcium 9.6 (8.4-10.2) mg/dL Total Bilirubin 0.9 (0.2-1.3) mg/dL AST 25 (17-59) U/L ALT 22 (4-49) U/L Alkaline Phosphatase 68 (38-126) U/L Total Protein 6.9 (6.3-8.2) g/dL Albumin 4.2 (3.5-5.0) g/dL Lipase 42 (23-300) U/L Urine Color Yellow Urine Appearance Clear (Clear) Urine pH 5.5 (5.0-8.0) Ur Specific [place] 1.026 (1.001-1.035) Urine Protein Trace H (Negative) Urine Glucose (UA) Negative (Negative) Urine Ketones Trace H (Negative) Urine Blood Negative (Negative) Urine Nitrite Negative (Negative) Urine Bilirubin Negative (Negative) Urine Urobilinogen 2.0 (<2.0) mg/dL Ur Leukocyte Esterase Trace H (Negative) Urine RBC 3 (0-5) /hpf Urine WBC 2 (0-5) /hpf Hyaline Casts 4 H (0-2) /lpf Urine Mucus Many H (None) /hpf Disposition Clinical Impression: Abdominal pain Disposition: HOME SELF-CARE Condition: Fair Instructions (If sedation given, give patient instructions): Abdominal Pain (ED) Is patient prescribed a controlled substance at d/c from ED?: No Referrals: Rebekah Maldonado DO [Primary Care Provider] - 1-2 days
--- NOTE | 2021-03-07 17:21 | CT ---
EXAMINATION TYPE: CT abdomen pelvis w con DATE OF EXAM: 03/07/2021 COMPARISON: 06/30/2013 HISTORY: Chronic constipation, abdominal pain. CT DLP: 932.5 mGycm Automated exposure control for dose reduction was used. CONTRAST: Performed with IV Contrast, patient injected with 100 mL of Isovue 300. Images obtained from the diaphragm to the floor the pelvis with IV contrast. FINDINGS: The lung bases are clear. There is no pleural effusion. There is minimal interstitial density at the posterior lung bases. Heart size is normal. There is no pericardial effusion. Liver spleen and stomach pancreas appear intact. Bile ducts are nondilated. There are clips from chol ecystectomy. There is no evidence of pancreatic mass. There is no adrenal mass. Kidneys show satisfactory contrast opacification. There is no hydronephrosi s. There is 2 cm cortical cyst anterior right kidney. There is no retroperitoneal adenopathy. The barbara dder distends smoothly. There is no inguinal hernia. There is no free fluid in the pelvis. There is no mesenteric edema. There is no ascites or free air. There is no bowel obstruction. There i s no evidence of a pelvic mass. There are multiple sigmoid diverticula without sign of diverticulitis . The lumbar vertebrae have normal alignment. There is no compression fracture. Posterior elements are intact. Bony pelvis is intact. Hip joints appear well normal. IMPRESSION: There is some mild subsegmental atelectasis at the posterior lung bases. No acute abnormality within the abdomen and pelvis. No adverse change compared to old exam.
== END 2021-03-07 17:59 | disposition home or self-care (01) ==
LOC: EC 14:47
DX: R10.31 Right lower quadrant pain (principal); R10.32 Left lower quadrant pain; E78.5 Hyperlipidemia, unspecified; K21.9 Gastro-esophageal reflux disease without esophagitis; F12.90 Cannabis use, unspecified, uncomplicated; Z79.899 Other long term (current) drug therapy
CPT/HCPCS: 99284; 36415; 93005; 80053; 83690; 85025; 81001; 74177; Q9967

== ENCOUNTER 2021-03-21 08:51 | Emergency (ER) | payer MEDICARE ==
[2021-03-21 08:54] VITALS: TEMP 97.2
--- NOTE | 2021-03-21 09:10 | ED ---
General Adult HPI - General Chief complaint: Abdominal Pain Stated complaint: bowel problems Time Seen by Provider: 03/21/21 08:58 Source: patient, RN notes reviewed, old records reviewed Mode of arrival: ambulatory Limitations: no limitations - History of Present Illness Initial comments: 70-year-old male for reevaluation of abdominal pain. Patient states he's been having ongoing symptoms for several months. He's been seen by general surgery and has an outpatient colonoscopy scheduled. He's been evaluated at this hospital as well as the [facility] for recurrent abdominal pain and constipation. He states he had not had a bowel movement in the last 3 days but took some laxative this morning and had a small bowel movement. No vomiting. No fever. - Related Data Home Medications Medication Instructions Recorded Confirmed Omeprazole 40 mg PO QAM 04/06/15 03/13/21 Atorvastatin [Lipitor] 10 mg PO QAM 07/31/15 03/13/21 Losartan Potassium [Cozaar] 25 mg PO QAM 03/07/21 03/13/21 Gabapentin [Neurontin] 100 mg PO QAM 03/13/21 Previous Rx's Medication Instructions Recorded Docusate [Colace] 100 mg PO BID #60 capsule 03/21/21 Polyethylene Glycol 3350 [Miralax] 17 gm PO DAILY #527 gm 03/21/21 Allergies Allergy/AdvReac Type Severity Reaction Status Date / Time No Known Allergies Allergy Verified 03/21/21 08:54 Review of Systems ROS Statement: Those systems with pertinent positive or pertinent negative responses have been documented in the HPI. ROS Other: All systems not noted in ROS Statement are negative. Past Medical History Past Medical History: Cancer, Chest Pain / Angina, GERD/Reflux, Hearing Disorder / Deafness, Hyperlipidemia, Vascular Disorder Additional Past Medical History / Comment(s): Pt states he has had generalized weakness/fatigue past couple months, Melanoma removed R ear/R pentecostalism/nose, basal cell skin cancer removals, hiatal hernia, benign colon polyp, bilateral tinnitis, [place] bilaterally, vertigo, varicose veins bilateral legs. History of Any Multi-Drug Resistant Organisms: None Reported Past Surgical History: Adenoidectomy, Cholecystectomy, Hernia Repair, Orthopedic Surgery, Tonsillectomy Additional Past Surgical History / Comment(s): R inguinal hernia repair, R ear/R pentecostalism and nose melanoma removals, basal skin cancer removals, L shoulder rotator cuff repair, colonoscopy/polypectomy Past Anesthesia/Blood Transfusion Reactions: No Reported Reaction Past Psychological History: Anxiety, Depression Smoking Status: Never smoker Past Alcohol Use History: Occasional Past Drug Use History: Marijuana - Past Family History Father Family Medical History: Cancer Additional Family Medical History / Comment(s): colorectal cancer Mother Family Medical History: No Reported History Additional Family Medical History / Comment(s): Mother lived into her 80s. General Exam Limitations: no limitations General appearance: alert, in no apparent distress Head exam: Present: atraumatic, normocephalic Eye exam: Present: normal appearance, PERRL ENT exam: Present: normal exam Neck exam: Present: normal inspection. Absent: tenderness, meningismus Respiratory exam: Present: normal lung sounds bilaterally. Absent: respiratory distress, wheezes Cardiovascular Exam: Present: regular rate, normal rhythm GI/Abdominal exam: Present: soft, tenderness (Mild generalized). Absent: dis tended, guarding, rebound Extremities exam: Present: normal inspection, normal capillary refill. Absent: pedal edema Neurological exam: Present: alert, oriented X3, CN II-XII intact. Absent: motor sensory deficit Psychiatric exam: Present: flat affect Skin exam: Present: warm, dry, intact. Absent: cyanosis, diaphoretic Course Vital Signs 03/21/21 08:52 Temperature 97.2 F L Pulse Rate 89 Respiratory 20 Rate Blood Pressure 152/84 O2 Sat by Pulse 97 Oximetry Medical Decision Making - Medical Decision Making 70-year-old male who had presented with 3 days of constipation and some generalized abdominal pain. This is been ongoing issue for this patient is scheduled for colonoscopy. He had CT imaging with the same symptoms about 2 weeks ago. This been going on for months. He's had workup both at this hospital and outside hospital. He has a good referral with general surgery and his primary care physician. X-ray shows some mild stool within the colon. Enema was performed and patient did have some stool output. He will continue to take stool softeners, high fiber diet. He will return with worsening or changing symptoms. Disposition Clinical Impression: Abdominal pain Disposition: HOME SELF-CARE Condition: Good Instructions (If sedation given, give patient instructions): Abdominal Pain (ED) Prescriptions: Docusate [Colace] 100 mg PO BID #60 capsule Polyethylene Glycol 3350 [Miralax] 17 gm PO DAILY #527 gm Is patient prescribed a controlled substance at d/c from ED?: No Referrals: Rebekah Maldonado DO [Primary Care Provider] - 1-2 days Luis Amin MD [STAFF PHYSICIAN] - 1-2 days Time of Disposition: 10:32
--- NOTE | 2021-03-21 09:36 | XR ---
EXAMINATION TYPE: XR KUB DATE OF EXAM: 03/21/2021 COMPARISON: NONE HISTORY: Pain TECHNIQUE: Single supine KUB image of the abdomen is obtained FINDINGS: Small bowel demonstrates no evidence for dilatation or air fluid levels. Gas and fecal material is seen in non-distended colon. No convincing evidence for pneumoperitoneum. No unusual calcifications. The lung bases are clear. The osseous structures are intact. IMPRESSION: 1. Overall nonobstructive bowel gas pattern.
[2021-03-21 10:39] VITALS: BP 141/92; PULSE 67; RESP 18
== END 2021-03-21 10:40 | disposition home or self-care (01) ==
LOC: EC 08:51
DX: K59.00 Constipation, unspecified (principal); K21.9 Gastro-esophageal reflux disease without esophagitis; E78.5 Hyperlipidemia, unspecified; F41.9 Anxiety disorder, unspecified; F32.A Depression, unspecified; F12.90 Cannabis use, unspecified, uncomplicated; Z85.828 Personal history of other malignant neoplasm of skin; Z90.49 Acquired absence of other specified parts of digestive tract
CPT/HCPCS: 74018; 99284

== ENCOUNTER 2021-03-22 11:35 | Emergency (ER) | payer MEDICARE ==
[2021-03-22 11:55] VITALS: BP 121/83; PULSE 64; RESP 18; TEMP 98.1
--- NOTE | 2021-03-22 13:03 | ED ---
General Adult HPI - General Chief complaint: Abdominal Pain Stated complaint: Constipation Time Seen by Provider: 03/22/21 11:35 Source: patient, EMS, RN notes reviewed, old records reviewed Mode of arrival: EMS - History of Present Illness Initial comments: This is a 70-year-old male who presents emergency Department complaining of constipation. Patient states he was seen here yesterday and was given an enema and he did have a bowel movement. Patient states since then he hasn't had a bowel movement and he hasn't eaten anything as well. Patient denies any abdominal pain. Patient denies any nausea vomiting. Patient denies any fever chills per patient states he has a appointment with a surgeon to do a colonoscopy but he didn't want to wait and so he wanted to be seen today. Patient called EMS to bring him into the hospital. Patient denies chest pain or difficulty breathing. - Related Data Home Medications Medication Instructions Recorded Confirmed Omeprazole 40 mg PO QAM 04/06/15 03/13/21 Atorvastatin [Lipitor] 10 mg PO QAM 07/31/15 03/13/21 Losartan Potassium [Cozaar] 25 mg PO QAM 03/07/21 03/13/21 Gabapentin [Neurontin] 100 mg PO QAM 03/13/21 Previous Rx's Medication Instructions Recorded Docusate [Colace] 100 mg PO BID #60 capsule 03/21/21 Polyethylene Glycol 3350 [Miralax] 17 gm PO DAILY #527 gm 03/21/21 Allergies Allergy/AdvReac Type Severity Reaction Status Date / Time No Known Allergies Allergy Verified 03/21/21 08:54 Review of Systems ROS Statement: Those systems with pertinent positive or pertinent negative responses have been documented in the HPI. ROS Other: All systems not noted in ROS Statement are negative. Past Medical History Past Medical History: Cancer, Chest Pain / Angina, GERD/Reflux, Hearing Disorder / Deafness, Hyperlipidemia, Vascular Disorder Additional Past Medical History / Comment(s): Pt states he has had generalized weakness/fatigue past couple months, Melanoma removed R ear/R jew/nose, basal cell skin cancer removals, hiatal hernia, benign colon polyp, bilateral tinnitis, [place] bilaterally, vertigo, varicose veins bilateral legs. History of Any Multi-Drug Resistant Organisms: None Reported Past Surgical History: Adenoidectomy, Cholecystectomy, Hernia Repair, Orthopedic Surgery, Tonsillectomy Additional Past Surgical History / Comment(s): R inguinal hernia repair, R ear/R jew and nose melanoma removals, basal skin cancer removals, L shoulder rotator cuff repair, colonoscopy/polypectomy Past Anesthesia/Blood Transfusion Reactions: No Reported Reaction Past Psychological History: Anxiety, Depression Smoking Status: Never smoker Past Alcohol Use History: Occasional Past Drug Use History: Marijuana - Past Family History Father Family Medical History: Cancer Additional Family Medical History / Comment(s): colorectal cancer Mother Family Medical History: No Reported History Additional Family Medical History / Comment(s): Mother lived into her 80s. General Exam - General Exam Comments Initial Comments: GENERAL: Patient is well-developed and well-nourished. Patient is nontoxic and well- hydrated and is in no acute distress. ENT: Neck is soft and supple. No significant lymphadenopathy is noted. Oropharynx is clear. Moist mucous membranes. Neck has full range of motion without eliciting any pain. EYES: The sclera were anicteric and conjunctiva were pink and moist. Extraocular movements were intact and pupils were equal round and reactive to light. Eyelids were unremarkable. PULMONARY: Unlabored respirations. Good breath sounds bilaterally. No audible rales rhonchi or wheezing was noted. CARDIOVASCULAR: There is a regular rate and rhythm without any murmurs gallops or rubs. ABDOMEN: Soft and nontender with normal bowel sounds. SKIN: Skin is clear with no lesions or rashes and otherwise unremarkable. NEUROLOGIC: Patient is alert and oriented x3. Cranial nerves II through XII are grossly intact. Motor and sensory are also intact. Normal speech, volume and content. Symmetrical smile. MUSCULOSKELETAL: Normal extremities with adequate strength and full range of motion. LYMPHATICS: No significant lymphadenopathy is noted PSYCHIATRIC: Normal psychiatric evaluation. Course Vital Signs 03/22/21 11:35 Temperature 98.1 F Pulse Rate 64 Respiratory 18 Rate Blood Pressure 121/83 O2 Sat by Pulse 98 Oximetry Medical Decision Making - Medical Decision Making A KUB was ordered however patient walked out prior to getting the x-ray and I was unable to continue to evaluate him. Disposition Clinical Impression: Constipation Disposition: Left Against Medical Advice Referrals: Rebekah Maldonado DO [Primary Care Provider] - 1-2 days Time of Disposition: 13:15
== END 2021-03-22 13:12 | disposition left against medical advice (07) ==
LOC: EC 11:35
DX: K59.00 Constipation, unspecified (principal); K21.9 Gastro-esophageal reflux disease without esophagitis; E78.5 Hyperlipidemia, unspecified; F41.9 Anxiety disorder, unspecified; F32.A Depression, unspecified; F12.90 Cannabis use, unspecified, uncomplicated; Z85.828 Personal history of other malignant neoplasm of skin; Z90.49 Acquired absence of other specified parts of digestive tract
CPT/HCPCS: 99283